=== PATIENT | male | born 1930 | race Caucasian/White ===

== ENCOUNTER 2017-01-17 17:51 | Observation (INO) | payer MEDICARE ==
[~2017-01-17] VITALS: Ht 180.3 cm; Wt 80.0 kg
[2017-01-17] VITALS (7 sets, daily range): BP systolic 136–220; BP diastolic 82–118; PULSE 90–102; RESP 20–26; TEMP 98.5; O2SAT 97–99
[~2017-01-17 17:51] MED LIST: ADVA500A INH; AMLO5TAB2 PO; ASPI-516 CHEW; METO1TAB9 PO; MULTCAP14; PRAS10TA PO; ROSU10 PO; TERA5CAP3 PO; ZOFR8TAB4 SL
[2017-01-17] MEDS ORDERED: METOPROLOL TARTRATE 5 MG/5 ML VIAL IV PUSH ONE (18:15)
[2017-01-17] MEDS ORDERED: SODIUM CHLORIDE 0.9% FLUSH 10 ML FLUSH IVF PRN (18:15)
--- NOTE | 2017-01-17 18:35 | RADRPT ---
EXAM DATE/TIME: 01/17/2017 18:22 [facility] COMPARISON: No previous studies available for comparison. INDICATIONS : Short of breath. MEDICAL HISTORY : Hypertension. Cardiovascular disease. Carcinoma; colon. SURGICAL HISTORY : CABG. Bowel resection. ENCOUNTER: Initial ACUITY: 1 day PAIN SCORE: 0/10 LOCATION: Bilateral FINDINGS: A single view of the chest demonstrates the lungs to be symmetrically aerated without evidence of mas s, infiltrate or effusion. Mild cardiomegaly. Previous median sternotomy. CONCLUSION: 1. No acute findings. Mild cardiomegaly. Yaron Horowitz MD on January 17, 2017 at 18:33 Board Certified Radiologist. This report was verified electronically.
[2017-01-17 18:38] LABS: AUTOMATED NEUTROPHIL # 6.1 TH/MM3 (1.8-7.7); BASOPHIL % 0.3 % (0.0-2.0); EOSINOPHIL # 0.1 TH/MM3 (0-0.4); EOSINOPHIL % 1.5 % (0.0-4.0); HEMATOCRIT 37.8 % (39.0-51.0); HEMO FLAGS DIFF FINAL; LYMPH % 13.3 % (9.0-44.0); LYMPHOCYTE # 1.1 TH/MM3 (1.0-4.8); MEAN CELL VOLUME 89.9 FL (80.0-100.0); MEAN CORPUSCULAR HEMOGLOBIN 30.1 PG (27.0-34.0); MEAN CORPUSCULAR HGB CONC 33.5 % (32.0-36.0); MONO % 9.3 % (0.0-8.0); NEUT % 75.6 % (16.0-70.0); PLATELET COUNT 171 TH/MM3 (150-450); WHITE BLOOD COUNT 8.1 TH/MM3 (4.0-11.0)
--- NOTE | 2017-01-17 18:39 | PD ---
HPI Chief Complaint: Pain: Acute or Chronic Time Seen by Provider: 18:09 (Aicha Rowan) Time Seen by Provider: 19:23 (Samaria Nunes MD) Travel History International Travel<30 days: No Contact w/Intl Traveler<30days: No Traveled to known affect area: No (Aicha Rowan) International Travel<30 days: No Contact w/Intl Traveler<30days: No Traveled to known affect area: No (Samaria Nunes MD) History of Present Illness HPI Patient is an 86-year-old male presenting to the emergency department for evaluation of shortness of breath. Patient states for the last several days, he hasn't been able to walk around because he gets short of breath. He has been sleeping in his recliner because he cannot lay flat. When EMS brought him to the emergency department they initially reported that he complained of chronic hip pain. Patient states that he always has had pain and takes Tylenol for this pain. He has no new pain. He has been more tired and has not taken his medications for 2 days as well. Denies any fevers, abdominal pain, chest pain, headache. 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 Amlodipine (Amlodipine Besylate) 5 Mg Tab 5 Mg PO DAILY Aspirin 81 Mg Chew 81 Mg CHEW DAILY Metoprolol Succinate ER 24 HR (Metoprolol Succinate) 50 Mg Tab 50 Mg PO BID Crestor (Rosuvastatin Calcium) 10 Mg Tab 10 Mg PO HS Terazosin (Terazosin HCl) 5 Mg Cap 5 Mg PO HS (Samaria Nunes MD) Review of Systems Except as stated in HPI: all other systems reviewed are Neg General / Constitutional: No: Fever HENT: No: Headaches Cardiovascular: Positive: Dyspnea on exertion, No: Chest Pain or Discomfort Respiratory: Positive: Shortness of Breath, Orthopnea Gastrointestinal: No: Nausea, Abdominal Pain Musculoskeletal: Positive: Pain (chronic hip) Neurologic: Positive: Weakness (Aicha Rowan) Physical Exam Narrative GENERAL: Overweight, well-developed, alert elderly gentleman. Resting comfortably in no acute distress. SKIN: Warm and dry. HEAD: Atraumatic. Normocephalic. EYES: Pupils equal and round. No scleral icterus. No injection or drainage. ENT: No nasal bleeding or discharge. Mucous membranes pink and moist. NECK: Trachea midline. No JVD. CARDIOVASCULAR: Tachycardic. 2/6 murmur RESPIRATORY: No accessory muscle use. Clear to auscultation. Breath sounds equal and diminished bilaterally. GASTROINTESTINAL: Abdomen soft, non-tender, nondistended. Hepatic and splenic margins not palpable. MUSCULOSKELETAL: Extremities without clubbing, cyanosis. No obvious deformities. Trace to 1+ edema in bilateral lower extremities. NEUROLOGICAL: Awake and alert. No obvious cranial nerve deficits. Motor grossly within normal limits. Five out of 5 muscle strength in the arms and legs. Normal speech. PSYCHIATRIC: Appropriate mood and affect; insight and judgment normal. (Aicha Rowan) Data Data Last Documented VS Vital Signs Date Time Temp Pulse Resp B/P (MAP) Pulse Ox O2 Delivery O2 Flow Rate FiO2 01/17/17 22:19 90 20 167/82 (110) 97 Nasal Cannula 2.00 01/17/17 18:11 98.5 (Samaria Nunes MD) Orders Orders Complete Blood Count With Diff (01/17/17 18:09) Comprehensive Metabolic Panel (01/17/17 18:09) B-Type Natriuretic Peptide (01/17/17 18:09) Act Partial Throm Time (Ptt) (01/17/17 18:09) Prothrombin Time / Inr (Pt) (01/17/17 18:09) Magnesium (Mg) (01/17/17 18:09) Ckmb (Isoenzyme) Profile (01/17/17 18:09) Troponin I (01/17/17 18:09) Urinalysis - C+S If Indicated (01/17/17 18:09) Iv Access Insert/Monitor (01/17/17 18:09) Electrocardiogram (01/17/17 18:09) Ecg Monitoring (01/17/17 18:09) Oximetry (01/17/17 18:09) Oxygen Administration (01/17/17 18:09) Chest, Single Ap (01/17/17 18:09) Sodium Chloride 0.9% Flush (Ns Flush) (01/17/17 18:15) Metoprolol Tartrate Inj (Lopressor Inj) (01/17/17 18:15) CKMB (01/17/17 18:22) CKMB% (01/17/17 18:22) Ct Pulmonary Angiogram (01/17/17 ) Hip, Uni(Ap&Lat) W Ap Pelvis (01/17/17 ) Morphine Inj (Morphine Inj) (01/17/17 19:30) Ondansetron Inj (Zofran Inj) (01/17/17 19:30) Ct Brain W/O Iv Contrast(Rout) (01/17/17 ) Knee, Ltd (1 Or 2vws) (01/17/17 ) Iohexol 350 Inj (Omnipaque 350 Inj) (01/17/17 21:20) Admit Order (Ed Use Only) (01/17/17 22:17) Activity Bed Rest With Brp (01/17/17 22:17) Vital Signs (Adult) Q4H (01/17/17 22:17) Cardiac Rhythm .As Directed (01/17/17 22:17) Notify Dr: Other .PRN (01/17/17 22:17) Notify . Parameters (01/17/17 22:17) Resp Oxygen Nasal Cannula (01/17/17 ) Diet Npo (01/18/17 Breakfast) Ckmb (Isoenzyme) Profile (01/17/17 22:17) Ckmb (Isoenzyme) Profile (01/18/17 01:17) Troponin I (01/17/17 22:17) Troponin I (01/18/17 01:17) Electrocardiogram (01/17/17 22:17) Electrocardiogram (01/18/17 01:17) ^ Obtain (01/17/17 22:17) Sodium Chloride 0.9% Flush (Ns Flush) (01/17/17 22:30) Sodium Chloride 0.9% Flush (Ns Flush) (01/18/17 09:00) Acetaminophen (Tylenol) (01/17/17 22:30) Acetamin-Hydrocod 325-7.5 Mg ([place] 7.5 (01/17/17 22:30) Ondansetron Inj (Zofran Inj) (01/17/17 22:30) Dice Manager / Telemetry NATHALIE.Q8H (01/17/17 22:17) CKMB (01/17/17 22:46) CKMB% (01/17/17 22:46) CKMB (01/18/17 01:40) CKMB% (01/18/17 01:40) (Samaria Nunes MD) Labs Laboratory Tests Test 01/17/17 18:22 01/17/17 19:35 White Blood Count 8.1 TH/MM3 Red Blood Count 4.20 MIL/MM3 Hemoglobin 12.7 GM/DL Hematocrit 37.8 % Mean Corpuscular Volume 89.9 FL Mean Corpuscular Hemoglobin 30.1 PG Mean Corpuscular Hemoglobin Concent 33.5 % Red Cell Distribution Width 15.0 % Platelet Count 171 TH/MM3 Mean Platelet Volume 7.3 FL Neutrophils (%) (Auto) 75.6 % Lymphocytes (%) (Auto) 13.3 % Monocytes (%) (Auto) 9.3 % Eosinophils (%) (Auto) 1.5 % Basophils (%) (Auto) 0.3 % Neutrophils # (Auto) 6.1 TH/MM3 Lymphocytes # (Auto) 1.1 TH/MM3 Monocytes # (Auto) 0.7 TH/MM3 Eosinophils # (Auto) 0.1 TH/MM3 Basophils # (Auto) 0.0 TH/MM3 CBC Comment DIFF FINAL Differential Comment Prothrombin Time 11.0 SEC Prothromb Time International Ratio 1.0 RATIO Activated Partial Thromboplast Time 29.4 SEC Blood Urea Nitrogen 29 MG/DL Creatinine 1.44 MG/DL Random Glucose 97 MG/DL Total Protein 7.2 GM/DL Albumin 3.7 GM/DL Calcium Level 8.7 MG/DL Magnesium Level 1.5 MG/DL Alkaline Phosphatase 136 U/L Aspartate Amino Transf (AST/SGOT) 29 U/L Alanine Aminotransferase (ALT/SGPT) 30 U/L Total Bilirubin 0.7 MG/DL Sodium Level 136 MEQ/L Potassium Level 4.5 MEQ/L Chloride Level 103 MEQ/L Carbon Dioxide Level 25.9 MEQ/L Anion Gap 7 MEQ/L Estimat Glomerular Filtration Rate 46 ML/MIN Total Creatine Kinase 234 U/L Creatine Kinase MB 3.4 NG/ML Troponin I LESS THAN 0.02 NG/ML B-Type Natriuretic Peptide 64 PG/ML Urine Color YELLOW Urine Turbidity CLEAR Urine pH 5.5 Urine Specific [place] 1.021 Urine Protein NEG mg/dL Urine Glucose (UA) NEG mg/dL Urine Ketones NEG mg/dL Urine Occult Blood NEG Urine Nitrite NEG Urine Bilirubin NEG Urine Urobilinogen LESS THAN 2.0 MG/DL Urine Leukocyte Esterase NEG Urine RBC 2 /hpf Urine WBC LESS THAN 1 /hpf Urine Squamous Epithelial Cells <1 /hpf Microscopic Urinalysis Comment CULT NOT INDICATED (Samaria Nunes MD) [facility] Medical Decision Making Medical Screen Exam Complete: Yes Emergency Medical Condition: Yes Interpretation(s) Vital Signs Date Time Temp Pulse Resp B/P (MAP) Pulse Ox O2 Delivery O2 Flow Rate FiO2 01/17/17 18:11 98.5 102 26 212/118 (149) 99 Nasal Cannula 2.00 01/17/17 18:11 18 26 Differential Diagnosis CHF vs ACS vs UTI vs PNA vs metabolic abnormality Narrative Course Patient is an 86-year-old male who presented for evaluation of shortness of breath, weakness. EMS reported left hip pain, patient did not complain of pain on arrival. Patient was hypertensive and tachycardic on arrival, he has not had metoprolol in 2 days. Lopressor ordered. Labs and imaging ordered and pending. Initial EKG shows sinus rhythm with frequent PVCs, new right bundle branch block. CBC with no acute findings Chemistry with elevated. Creatinine at 29/1.44, BNP 64, cardiac enzymes are negative 1 set Chest x-ray with no acute findings, mild cardiomegaly. This was read by the radiologist. CT pulmonary angiogram ordered and pending to rule out pulmonary embolism. X-ray ordered of the right hip, morphine and Zofran ordered for pain. Patient reported that when he becomes short of breath because he has a problem with his heart. Due to patient's cardiac history as well as EKG changes with no comparison, patient will be placed in the chest pain center. This was discussed with Dr. Nunes who recommended chest pain center admission. Admit orders placed. Patient is agreeable. (Aicha Rowan) Diagnosis Primary Impression: Chest pain Qualified Codes: R07.9 - Chest pain, unspecified Additional Impression: Knee pain Qualified Codes: M25.561 - Pain in right knee Admitting Information Admitting Physician Requests: Observation (Aicha Rowan) Condition: Stable Aicha Rowan Jan 17, 2017 18:39 Samaria Nunes MD Jan 18, 2017 05:54
[2017-01-17 18:52] LABS: APTT (PATIENT) 29.4 SEC (24.3-30.1)
[2017-01-17 18:54] LABS: ANION GAP 7 MEQ/L (5-15); AST (GOT) 29 U/L (15-37); BICARBONATE 25.9 MEQ/L (21.0-32.0); BLOOD UREA NITROGEN 29 MG/DL (7-18); CHLORIDE 103 MEQ/L (98-107); GLOMERULAR FILTRATION RATE 46 ML/MIN (>89); MAGNESIUM 1.5 MG/DL (1.5-2.5); POTASSIUM 4.5 MEQ/L (3.5-5.1); SODIUM (NA) 136 MEQ/L (136-145)
[2017-01-17 18:55] LABS: ALT (GPT) 30 U/L (12-78)
[2017-01-17 18:59] LABS: ALKALINE PHOSPHATASE 136 U/L (45-117); CREATINE KINASE 234 U/L (39-308); TOTAL BILIRUBIN ADULT 0.7 MG/DL (0.2-1.0)
[2017-01-17 19:11] LABS: CKMB 3.4 NG/ML (0.5-3.6)
[2017-01-17] MEDS ORDERED: MORPHINE SULFATE 2 MG/ML INJ IV PUSH ONE (19:30)
[2017-01-17] MEDS ORDERED: ONDANSETRON HCL 4 MG/2 ML VIAL IV PUSH ONE (19:30)
[2017-01-17 20:02] LABS: BLOOD, URINE NEG (NEG); COMMENT (UR) CULT NOT INDICATED; CULTURE IF INDICATED CULT NOT INDICATED; GLUCOSE,URINE NEG (NEG); KETONE, URINE NEG (NEG); NITRITE,URINE NEG (NEG); PH, URINE 5.5 (5.0-8.5); SQUAMOUS EPITHELIAL CELL URINE <1 /hpf (0-5); URINE COLOR YELLOW (YELLW/STRAW)
--- NOTE | 2017-01-17 20:43 | RADRPT ---
EXAM DATE/TIME: 01/17/2017 20:07 [facility] COMPARISON: No previous studies available for comparison. INDICATIONS : Right hip pain, no known injury. MEDICAL HISTORY : Hypertension. Cardiovascular disease. Carcinoma; colon. SURGICAL HISTORY : CABG. Bowel resection. ENCOUNTER: Subsequent ACUITY: 1 week PAIN SCORE: 10/10 LOCATION: Right hip FINDINGS: Examination of the right hip was performed with AP Pelvis. The primary and secondary trabecular kenya collette of the femoral neck is intact. Moderate osteoarthritis of the right hip. The acetabulum is gross ly intact. CONCLUSION: 1. No acute fracture or dislocation. Moderate osteoarthritis of the right hip. Yaron Horowitz MD on January 17, 2017 at 20:37 Board Certified Radiologist. This report was verified electronically.
--- NOTE | 2017-01-17 20:44 | RADRPT ---
EXAM DATE/TIME: 01/17/2017 20:07 [facility] COMPARISON: No previous studies available for comparison. INDICATIONS : Right knee pain, no known injury. MEDICAL HISTORY : Hypertension. Cardiovascular disease. Carcinoma; colon. SURGICAL HISTORY : CABG. Bowel resection. ENCOUNTER: Subsequent ACUITY: 1 week PAIN SCORE: 10/10 LOCATION: Right knee FINDINGS: There is severe osteoarthritis of the right knee with a moderate size knee joint effusion. Extensive arterial vascular calcifications noted in the popliteal artery. No acute fracture. CONCLUSION: 1. Severe osteoarthritis of the right knee with moderate size joint effusion. Yaron Horowitz MD on January 17, 2017 at 20:42 Board Certified Radiologist. This report was verified electronically.
[2017-01-17] MEDS ORDERED: IOHEXOL 350 MG/ML 10 ML VIAL (for RAD DIAG) IVCONTRAST ONE (21:20)
--- NOTE | 2017-01-17 21:32 | RADRPT ---
EXAM DATE/TIME: 01/17/2017 21:06 [facility] COMPARISON: No previous studies available for comparison. INDICATIONS : Cephalgia. RADIATION DOSE: 69.15 CTDIvol (mGy) MEDICAL HISTORY : Hypertension. Cardiovascular disease SURGICAL HISTORY : CABG ENCOUNTER: Initial ACUITY: 1 day PAIN SCALE: 5/10 LOCATION: Bilateral cranial TECHNIQUE: Multiple contiguous axial images were obtained of the head. Using automated exposure control and adj ustment of the mA and/or kV according to patient size, radiation dose was kept as low as reasonably a chievable to obtain optimal diagnostic quality images. DICOM format image data is available electro nically for review and comparison. FINDINGS: CEREBRUM: The ventricles are normal for age. No evidence of midline shift, mass lesion, hemorrhage or acute in farction. No extra-axial fluid collections are seen. POSTERIOR FOSSA: The cerebellum and brainstem are intact. The 4th ventricle is midline. The cerebellopontine angle i s unremarkable. EXTRACRANIAL: The visualized portion of the orbits is intact. SKULL: The calvaria is intact. No evidence of skull fracture. CONCLUSION: Normal examination for a patient of this age. Yaron Horowitz MD on January 17, 2017 at 21:29 Board Certified Radiologist. This report was verified electronically.
--- NOTE | 2017-01-17 21:47 | RADRPT ---
EXAM DATE/TIME: 01/17/2017 21:10 [facility] COMPARISON: No previous studies available for comparison. INDICATIONS : Chest pain. IV CONTRAST: 75 cc Omnipaque 350 (iohexol) IV RADIATION DOSE: 14.88 CTDIvol (mGy) MEDICAL HISTORY : Cardiovascular disease. Hypertension. SURGICAL HISTORY : CABG ENCOUNTER: Initial ACUITY: 1 day PAIN SCALE: 6/10 LOCATION: Bilateral chest TECHNIQUE: Volumetric scanning of the chest was performed using a pulmonary embolism protocol MIP images were re constructed. Using automated exposure control and adjustment of the mA and/or kV according to patien t size, radiation dose was kept as low as reasonably achievable to obtain optimal diagnostic quality images. DICOM format image data is available electronically for review and comparison. Follow-up recommendations for detected pulmonary nodules are based at a minimum on nodule size and pa tient risk factors according to Fleischner Society Guidelines. FINDINGS: Contrast bolus in the pulmonary arteries is suboptimal but no central filling defects are seen to sug gest pulmonary embolus. Moderate to severe coronary calcifications noted. No lung consolidation. No p leural or pericardial effusion is seen. Previous median sternotomy. CONCLUSION: 1. Suboptimal contrast bolus but no central pulmonary emboli identified. 2. Moderate to severe coronary calcifications. Yaron Horowitz MD on January 17, 2017 at 21:43 Board Certified Radiologist. This report was verified electronically.
[2017-01-17] MEDS ORDERED: ONDANSETRON HCL 4 MG/2 ML VIAL IV PUSH PRN (22:30)
[2017-01-17] MEDS ORDERED: ACETAMINOPHEN 500 MG CPLT PO PRN (22:30)
[2017-01-17] MEDS ORDERED: SODIUM CHLORIDE 0.9% FLUSH 10 ML FLUSH IV FLUSH PRN (22:30)
[2017-01-17 23:21] LABS: CREATINE KINASE 260 U/L (39-308)
[2017-01-17 23:34] LABS: CKMB 4.4 NG/ML (0.5-3.6)
[2017-01-18 00:06] VITALS: BP 141/71; PULSE 75; RESP 16; TEMP 98.1; O2SAT 99
[2017-01-18] MEDS: ACETAMINOPHEN/HYDROcodone 325 MG/7.5 MG TAB PO PRN ×2 (01:53→06:16)
[2017-01-18 02:39] LABS: CKMB 5.9 NG/ML (0.5-3.6)
[2017-01-18 03:00] VITALS: BP 131/74; PULSE 95; RESP 17; TEMP 98; O2SAT 96
[2017-01-18 07:13] VITALS: O2SAT 97
[2017-01-18] MEDS ORDERED: NITROGLYCERIN 0.4 MG SL 25 TABS/BTL SL PRN (07:45)
[2017-01-18 08:30] VITALS: PULSE 110
[2017-01-18 08:41] VITALS: BP 161/76; PULSE 91; RESP 20; TEMP 97.9; O2SAT 96
[2017-01-18] MEDS ORDERED: ASPIRIN 325 MG TAB PO SCH (09:00)
[2017-01-18] MEDS ORDERED: SODIUM CHLORIDE 0.9% FLUSH 10 ML FLUSH IV FLUSH SCH (09:00)
--- NOTE | 2017-01-18 09:12 | HHI.HP ---
HPI Primary Care Physician None Chief Complaint Right hip and right knee pain History of Present Illness 86-year-old male with history of coronary artery disease, hypertension, COPD, and hyperlipidemia presents to emergency room for further evaluation of right hip and right knee pain. Onset "at least 1 week ago." Location right hip described as sharp shooting pains to his knee. Duration constant. Precipitating factors ambulating. No known relieving factors. States he got tired of the pain and couldn't handle it anymore therefore called EMS. When questioned about chest pain adamantly denies chest pain. When questioned about dyspnea on exertion and requiring sleeping in a recliner per ER record, he reports "that is what my told them." Reports sleeping in a recliner for along time. Denies shortness of breath on exertional, stating right hip pain becomes worse with walking and may become labored due to pain. Endorses he does not have a PCP he follows with but would be able to see his ie's PCP for follow up. Denies any recent fall or known injury. Mildly angry and frustrated he is admitted to chest pain center, stating "I came to ER for my hip and knee pain. Review of Systems General: No fatigue,weakness, fever, chills, or recent illness. Has been in his general state of health other than as stated above. No known injury, no trauma, or recent fall. CV: History of CABG x3 (2007). Follows with Dr. José. No known CHF. Unsure if he ever had an echocardiogram done, unsure of EF%. No CP, pressure, tightness , palpitations, or dizziness. RESP: No SOB, cough, wheeze, or recent URI. History of COPD reports COPD stable on current Advair inhaler. GI: No nausea, vomiting, or bowel changes. No change in appetite. : History of BPH. No dysuria. EXT: No worsen bilateral dependent edema, no paraesthesias MS: No discomfort or change in ROM. Ambulates with a walker. No recent falls. NEURO: No LOC, motor/sensory deficits PSYCH: No anxiety or depression SKIN: No rashes, no concerning lesions Past Family Social History Allergies: Coded Allergies: No Known Allergies (Verified , 01/20/13) Past Medical History CAD, hypertension, hyperlipidemia, COPD, BPH Past Surgical History CABG 3 and aortic valve replacement (2007), bowel resection Reported Medications Reported Effient (Prasugrel) 10 Mg Tab 10 Mg PO DAILY Advair Diskus Inh (Fluticasone-Salmeterol Inh) 500-50 Mcg/Blist Aer 1 Puff INH BID Rinse mouth after use. Amlodipine (Amlodipine Besylate) 5 Mg Tab 5 Mg PO DAILY Aspirin 81 Mg Chew 81 Mg CHEW DAILY Metoprolol Succinate ER 24 HR (Metoprolol Succinate) 50 Mg Tab 50 Mg PO BID Crestor (Rosuvastatin Calcium) 10 Mg Tab 10 Mg PO HS Terazosin (Terazosin HCl) 5 Mg Cap 5 Mg PO HS Active Ordered Medications Current Medications Medications (Trade) Dose Ordered Sig/Rios Route Start Time Stop Time Status Last Admin (NS Flush) 2 ml UNSCH PRN IV FLUSH 01/17/17 22:30 (NS Flush) 2 ml BID IV FLUSH 01/18/17 09:00 01/18/17 08:33 (Tylenol) 500 mg Q4H PRN PO 01/17/17 22:30 ([place] 7.5-325 Mg) 1 tab Q4H PRN PO 01/17/17 22:30 01/18/17 06:16 (Zofran Inj) 4 mg Q6H PRN IV PUSH 01/17/17 22:30 (Nitrostat Sl) 0.4 mg Q5M PRN SL 01/18/17 07:45 (Aspirin) 325 mg DAILY PO 01/18/17 09:00 01/18/17 08:33 Social History Known coronary artery disease, hypertension, and hyper lipidemia. No known diabetes. Quit smoking at age 73. Denies any alcohol. . Ambulates with a walker. Past cardiac testing No recent stress testing. Follows with Dr. José. 01/20/2013 cardiac catheterization (Dr. José)-conclusions 1. Unstable angina, [place] cardiovascular Society class IV angina, culprit 95% distal left anterior descending stenosis as detailed above. 2. Otherwise, severe three-vessel coronary artery disease and right dominant system as detailed above. 3. 3 of 3 grafts patent. 4. Ejection fraction of left ventricular end diastolic pressure was not accessed due to history of aortic valve. 5. Successful PTCA of distal left anterior descending from 95% to 0% with CARY 3 flow. 6. Recommend Effient 60 mg now then 10 mg daily. Aspirin 81 mg a day indefinitely. The patient will continue on his home meds of Lopressor milligrams twice a day, pravastatin 20 mg. As an outpatient, I will change the patient to Crestor for more aggressive lipid management. Physical Exam Vital Signs Vital Signs Date Time Temp Pulse Resp B/P (MAP) Pulse Ox O2 Delivery O2 Flow Rate FiO2 01/18/17 08:41 97.9 91 20 161/76 (104) 96 01/18/17 07:13 97 Nasal Cannula 2.00 01/18/17 03:00 98.0 95 17 131/74 (93) 96 01/18/17 00:06 98.1 75 16 141/71 (94) 99 01/17/17 23:05 01/17/17 22:25 97 21 01/17/17 22:19 90 20 167/82 (110) 97 Nasal Cannula 2.00 01/17/17 20:39 100 22 136/82 (100) 97 Nasal Cannula 2.00 01/17/17 20:22 99 20 188/107 (134) 98 2.00 01/17/17 19:45 186/114 (138) 01/17/17 19:21 96 22 220/98 (138) 99 Nasal Cannula 2.00 01/17/17 19:21 96 22 220/98 (138) 99 Nasal Cannula 2.00 01/17/17 19:21 99 Nasal Cannula 2.00 01/17/17 18:11 98.5 102 26 212/118 (149) 99 Nasal Cannula 2.00 01/17/17 18:11 18 26 Physical Exam GENERAL: Alert WN, WD, NAD, pleasant, elderly male HEAD: NC, AT CV: RRR, without murmur, rub, gallop, no JVD, S1-S2 no S3-S4. RESP: Clear lungs throughout bilateral, no crackles, wheeze, rhonchi, symmetrical chest rise, nonlabored, able to speak in full sentences ABD: Soft, NT, ND, no masses, positive bowel tones EXT: Pulses +24, +2 pitting lower dependent edema MS: Normal tone 4 extremities, no obvious deformities, full range of motion, nontender right hip and right knee pain with passive rom or palpation. NEURO: CN II through CN XII grossly intact, motor strength 5/5 PSYCH: A+O 3, pleasant affect, appropriate speech, mood, insight and judgment SKIN: Normal turgor, normal texture, bilateral lower extremities varicosities, decreased lower extremities hair distribution Laboratory Laboratory Tests Test 01/17/17 18:22 01/17/17 19:35 01/17/17 22:46 01/18/17 01:40 White Blood Count 8.1 Red Blood Count 4.20 Hemoglobin 12.7 Hematocrit 37.8 Mean Corpuscular Volume 89.9 Mean Corpuscular Hemoglobin 30.1 Mean Corpuscular Hemoglobin Concent 33.5 Red Cell Distribution Width 15.0 Platelet Count 171 Mean Platelet Volume 7.3 Neutrophils (%) (Auto) 75.6 Lymphocytes (%) (Auto) 13.3 Monocytes (%) (Auto) 9.3 Eosinophils (%) (Auto) 1.5 Basophils (%) (Auto) 0.3 Neutrophils # (Auto) 6.1 Lymphocytes # (Auto) 1.1 Monocytes # (Auto) 0.7 Eosinophils # (Auto) 0.1 Basophils # (Auto) 0.0 CBC Comment DIFF FINAL Differential Comment Prothrombin Time 11.0 Prothromb Time International Ratio 1.0 Activated Partial Thromboplast Time 29.4 Blood Urea Nitrogen 29 Creatinine 1.44 Random Glucose 97 Total Protein 7.2 Albumin 3.7 Calcium Level 8.7 Magnesium Level 1.5 Alkaline Phosphatase 136 Aspartate Amino Transf (AST/SGOT) 29 Alanine Aminotransferase (ALT/SGPT) 30 Total Bilirubin 0.7 Sodium Level 136 Potassium Level 4.5 Chloride Level 103 Carbon Dioxide Level 25.9 Anion Gap 7 Estimat Glomerular Filtration Rate 46 Total Creatine Kinase 234 260 343 Creatine Kinase MB 3.4 4.4 5.9 Troponin I LESS THAN 0.02 0.02 0.02 B-Type Natriuretic Peptide 64 Urine Color YELLOW Urine Turbidity CLEAR Urine pH 5.5 Urine Specific [place] 1.021 Urine Protein NEG Urine Glucose (UA) NEG Urine Ketones NEG Urine Occult Blood NEG Urine Nitrite NEG Urine Bilirubin NEG Urine Urobilinogen LESS THAN 2.0 Urine Leukocyte Esterase NEG Urine RBC 2 Urine WBC LESS THAN 1 Urine Squamous Epithelial Cells <1 Microscopic Urinalysis Comment CULT NOT INDICATED Creatine Kinase MB % 1.7 Result Diagram: 01/17/17182101/17/171821 Imaging Last Impressions Chest X-Ray 01/17/171808 Signed Impressions: Service Date/Time: December 18:22 - CONCLUSION: 1. No acute findings. Mild cardiomegaly. Yaron Horowitz MD Knee X-Ray 01/17/17 Signed Impressions: Service Date/Time: December 20:07 - CONCLUSION: 1. Severe osteoarthritis of the right knee with moderate size joint effusion. Yaron Horowitz MD Hip and Pelvis X-Ray 01/17/17 Signed Impressions: Service Date/Time: December 20:07 - CONCLUSION: 1. No acute fracture or dislocation. Moderate osteoarthritis of the right hip. Yaron Horowitz MD Head CT 01/17/17 Signed Impressions: Service Date/Time: December 21:06 - CONCLUSION: Normal examination for a patient of this age. Yaron Horowitz MD CT Angiography 01/17/17 Signed Impressions: Service Date/Time: December 21:10 - CONCLUSION: 1. Suboptimal contrast bolus but no central pulmonary emboli identified. 2. Moderate to severe coronary calcifications. Yaron Horowitz MD Course EKG Right bundle branch block with frequent PVCs Caprini VTE Risk Assessment Caprini VTE Risk Assessment: Mod/High Risk (score >= 2) Caprini Risk Assessment Model Point Value = 1 Point Value = 2 Point Value = 3 Point Value = 5 Age 41-60 Minor surgery BMI > 25 kg/m2 Swollen legs Varicose veins or History of unexplained or recurrent spontaneous Oral contraceptives or hormone replacement Sepsis (< 1 month) Serious lung disease, including pneumonia (< 1 month) Abnormal pulmonary function Acute myocardial infarction Congestive heart failure (< 1 month) History of inflammatory bowel disease Medical patient at bed rest Age 61-74 Arthroscopic surgery Major open surgery (> 45 min) Laparoscopic surgery (> 45 min) Malignancy Confined to bed (> 72 hours) Immobilizing plaster cast Central venous access Age >= 75 History of VTE Family history of VTE Factor V Leiden Prothrombin [id number] Lupus anticoagulant Anticardiolipin antibodies Elevated serum homocysteine Heparin-induced thrombocytopenia Other congenital or acquired thrombophilia Stroke (< 1 month) Elective arthroplasty Hip, pelvis, or leg fracture Acute spinal cord injury (< 1 month) Prophylaxis Regimen Total Risk Factor Score Risk Level Prophylaxis Regimen 0-1 Low Early ambulation 2 Moderate Order ONE of the following: *Sequential Compression Device (SCD) *Heparin 5000 units SQ BID 3-4 Higher Order ONE of the following medications: *Heparin 5000 units SQ TID *Enoxaparin/Lovenox 40 mg SQ daily (WT < 150 kg, CrCl > 30 mL/min) *Enoxaparin/Lovenox 30 mg SQ daily (WT < 150 kg, CrCl > 10-29 mL/min) *Enoxaparin/Lovenox 30 mg SQ BID (WT < 150 kg, CrCl > 30 mL/min) AND/OR *Sequential Compression Device (SCD) 5 or more Highest Order ONE of the following medications: *Heparin 5000 units SQ TID (Preferred with Epidurals) *Enoxaparin/Lovenox 40 mg SQ daily (WT < 150 kg, CrCl > 30 mL/min) *Enoxaparin/Lovenox 30 mg SQ daily (WT < 150 kg, CrCl > 10-29 mL/min) *Enoxaparin/Lovenox 30 mg SQ BID (WT < 150 kg, CrCl > 30 mL/min) AND *Sequential Compression Device (SCD) Assessment and Plan Assessment and Plan #1 Right hip pain-no acute findings such as fracture or dislocation on hip fracture x-ray. Suggesting moderate osteoarthritis of right hip. Conservative measures, establish with a PCP. #2 Right knee pain-no acute physical findings, knee x-rays suggest severe osteoarthritis with moderate size joint effusion, recommended follow-up with a PCP. #3 History of CAD-continue Effient, amlodipine, aspirin, metoprolol, and Crestor. #4 COPD-no acute findings, stable, continue Advair Admitted to chest pain center. Ruled out with 3 sets of EKGs, cardiac enzymes, monitor overnight. Seen and evaluated by Dr. Tanmay Kwong. No further cardiac testing is patient admitted he never had any chest pain or discomfort. Lasix 40 mg IV 1 dose prior to discharge due to bilateral lower extremity edema. Discharge home later this morning. Patient agreeable to plan a care as he is anxious to return home. Strongly encouraged and stressed the importance of establishing with a PCP. Keep previously scheduled appointments with breast worker. Teena Gonzalez Jan 18, 2017 09:12
--- NOTE | 2017-01-18 10:05 | PD.CARD.PN ---
Subjective Subjective Remarks Discussed with BRAND ACTIVATION MANAGER and then evaluated and examined. Her H&P is appropriate and i am in agreement. He denies any increase in SOB, PND, ORTHOPNEA and stated that he came to the ED because of hip and knee pain. His CV status remains stable and unchanged from his baseline. He sleeps in a recliner at times simply because he can't get to sleep not because of breathing issues. Leg swelling is chronic and unchanged. He is followed by Dr. José on a regular basis. Objective Medications Current Medications Medications (Trade) Dose Ordered Sig/Rios Route Start Time Stop Time Status Last Admin (NS Flush) 2 ml UNSCH PRN IV FLUSH 01/17/17 22:30 (NS Flush) 2 ml BID IV FLUSH 01/18/17 09:00 01/18/17 08:33 (Tylenol) 500 mg Q4H PRN PO 01/17/17 22:30 ([place] 7.5-325 Mg) 1 tab Q4H PRN PO 01/17/17 22:30 01/18/17 06:16 (Zofran Inj) 4 mg Q6H PRN IV PUSH 01/17/17 22:30 (Nitrostat Sl) 0.4 mg Q5M PRN SL 01/18/17 07:45 (Aspirin) 325 mg DAILY PO 01/18/17 09:00 01/18/17 08:33 Vital Signs / I&O Vital Signs Date Time Temp Pulse Resp B/P (MAP) Pulse Ox O2 Delivery O2 Flow Rate FiO2 01/18/17 08:41 97.9 91 20 161/76 (104) 96 01/18/17 08:30 110 01/18/17 07:13 97 Nasal Cannula 2.00 01/18/17 03:00 98.0 95 17 131/74 (93) 96 01/18/17 00:06 98.1 75 16 141/71 (94) 99 01/17/17 23:05 01/17/17 22:25 97 21 01/17/17 22:19 90 20 167/82 (110) 97 Nasal Cannula 2.00 01/17/17 20:39 100 22 136/82 (100) 97 Nasal Cannula 2.00 01/17/17 20:22 99 20 188/107 (134) 98 2.00 01/17/17 19:45 186/114 (138) 11/23/17 19:21 96 22 220/98 (138) 99 Nasal Cannula 2.00 01/17/17 19:21 96 22 220/98 (138) 99 Nasal Cannula 2.00 01/17/17 19:21 99 Nasal Cannula 2.00 01/17/17 18:11 98.5 102 26 212/118 (149) 99 Nasal Cannula 2.00 01/17/17 18:11 18 26 I/O 01/17/17 01/17/17 01/17/17 01/18/17 01/18/17 01/18/17 07:00 15:00 23:00 07:00 15:00 23:00 Output Total 150 ml Balance -150 ml Output Urine Total 150 ml # Voids 1 Physical Exam Sitting at bedside No JVD Chest clear with decreased BS but no RWR CV irregular with 1--2/6 Sm, no G or R Ext 2+ pitting 1 cm abrasions below R knee and ecchymosis on knee (possible cause of pain?) Laboratory Laboratory Tests Test 01/17/17 18:22 01/17/17 19:35 01/17/17 22:46 01/18/17 01:40 White Blood Count 8.1 TH/MM3 Red Blood Count 4.20 MIL/MM3 Hemoglobin 12.7 GM/DL Hematocrit 37.8 % Mean Corpuscular Volume 89.9 FL Mean Corpuscular Hemoglobin 30.1 PG Mean Corpuscular Hemoglobin Concent 33.5 % Red Cell Distribution Width 15.0 % Platelet Count 171 TH/MM3 Mean Platelet Volume 7.3 FL Neutrophils (%) (Auto) 75.6 % Lymphocytes (%) (Auto) 13.3 % Monocytes (%) (Auto) 9.3 % Eosinophils (%) (Auto) 1.5 % Basophils (%) (Auto) 0.3 % Neutrophils # (Auto) 6.1 TH/MM3 Lymphocytes # (Auto) 1.1 TH/MM3 Monocytes # (Auto) 0.7 TH/MM3 Eosinophils # (Auto) 0.1 TH/MM3 Basophils # (Auto) 0.0 TH/MM3 CBC Comment DIFF FINAL Differential Comment Prothrombin Time 11.0 SEC Prothromb Time International Ratio 1.0 RATIO Activated Partial Thromboplast Time 29.4 SEC Blood Urea Nitrogen 29 MG/DL Creatinine 1.44 MG/DL Random Glucose 97 MG/DL Total Protein 7.2 GM/DL Albumin 3.7 GM/DL Calcium Level 8.7 MG/DL Magnesium Level 1.5 MG/DL Alkaline Phosphatase 136 U/L Aspartate Amino Transf (AST/SGOT) 29 U/L Alanine Aminotransferase (ALT/SGPT) 30 U/L Total Bilirubin 0.7 MG/DL Sodium Level 136 MEQ/L Potassium Level 4.5 MEQ/L Chloride Level 103 MEQ/L Carbon Dioxide Level 25.9 MEQ/L Anion Gap 7 MEQ/L Estimat Glomerular Filtration Rate 46 ML/MIN Total Creatine Kinase 234 U/L 260 U/L 343 U/L Creatine Kinase MB 3.4 NG/ML 4.4 NG/ML 5.9 NG/ML Troponin I LESS THAN 0.02 NG/ML 0.02 NG/ML 0.02 NG/ML B-Type Natriuretic Peptide 64 PG/ML Urine Color YELLOW Urine Turbidity CLEAR Urine pH 5.5 Urine Specific [place] 1.021 Urine Protein NEG mg/dL Urine Glucose (UA) NEG mg/dL Urine Ketones NEG mg/dL Urine Occult Blood NEG Urine Nitrite NEG Urine Bilirubin NEG Urine Urobilinogen LESS THAN 2.0 MG/DL Urine Leukocyte Esterase NEG Urine RBC 2 /hpf Urine WBC LESS THAN 1 /hpf Urine Squamous Epithelial Cells <1 /hpf Microscopic Urinalysis Comment CULT NOT INDICATED Creatine Kinase MB % 1.7 % Imaging Last 24 hours Impressions Chest X-Ray 01/17/17 1809 Signed Impressions: Service Date/Time: December 18:22 - CONCLUSION: 1. No acute findings. Mild cardiomegaly. Yaron Horowitz MD Assessment and Plan Assessment and Plan Will review current treatment. Add brief diuresis. As he has no CP and is followed by compressor operator portable further evaluation now is not appropriate. Will discharge once stable to FU as OP with Dr. José. Code Status Full Discussed Condition With Patient Tanmay Kwong MD Jan 18, 2017 10:05
[2017-01-18] MEDS ORDERED: amLODIPine BESYLATE 5 MG TAB PO SCH (10:15)
[2017-01-18] MEDS ORDERED: PRASUGREL 10 MG TAB PO SCH (10:15)
[2017-01-18] MEDS ORDERED: FUROSEMIDE 40 MG/4 ML VIAL IV PUSH ONE (10:15)
[2017-01-18] MEDS ORDERED: ASPIRIN 81 MG CHEW TAB CHEW SCH (10:15)
[2017-01-18] MEDS ORDERED: METOPROLOL SUCCINATE 50 MG EXTENDED RELEASE TAB PO SCH (10:15)
[2017-01-18] MEDS ORDERED: BUDESONIDE-FORMOTEROL 160/4.5 MCG INHALER INH SCH (10:30)
[2017-01-18 11:13] VITALS: BP 129/70; PULSE 113; RESP 18; TEMP 95.1; O2SAT 98
--- NOTE | 2017-01-18 11:17 | HHI.DCPOC ---
Discharge Care Plan Diagnosis: (1) Hx of coronary artery disease (2) Right hip pain Goals to Promote Your Health * To prevent worsening of your condition and complications * To maintain your health at the optimal level Directions to Meet Your Goals Take your medications as prescribed Follow your dietary instruction Follow activity as directed Keep your appointments as scheduled Take your immunizations and boosters as scheduled If your symptoms worsen call your PCP, if no PCP go to Urgent Care Center or Emergency Room Smoking is Dangerous to Your Health. Avoid second hand smoke Call the 24-hour hour crisis hotline for domestic abuse at Teena Gonzalez Jan 18, 2017 11:17
--- NOTE | 2017-01-18 13:06 | EKG ---
Date Performed: 01/17/2017 Time Performed: 22:49:41 PTAGE: 86 years EKG: SINUS TACHYCARDIA WITH FREQUENT VENTRICULAR PREMATURE COMPLEXES IN A BIGEMINAL PATTERN RIGH T BUNDLE BRANCH BLOCK LEFT ANTERIOR FASCICULAR BLOCK ABNORMAL ECG Compared to PREVIOUS TRACING , ventricular is more frequent. PREVIOUS TRACIN01/17/2017 18.12 DOCTOR: Tanmay Kwong Interpretating Date/Time 01/18/2017 13:04:59
--- NOTE | 2017-01-18 13:06 | EKG ---
Date Performed: 01/18/2017 Time Performed: 01:10:12 PTAGE: 86 years EKG: SINUS TACHYCARDIA WITH FREQUENT VENTRICULAR PREMATURE COMPLEXES RIGHT BUNDLE BRANCH BLOCK L EFT ANTERIOR FASCICULAR BLOCK VENTRICULAR COUPLET IS NOTED ABNORMAL ECG Since PREVIOUS TRACING , no significant change noted PREVIOUS TRACIN01/17/2017 18.12 DOCTOR: Tanmay Kwong Interpretating Date/Time 01/18/2017 13:05:29
--- NOTE | 2017-01-18 13:06 | EKG ---
Date Performed: 01/17/2017 Time Performed: 18:12:37 PTAGE: 86 years EKG: Sinus rhythm WITH FREQUENT VENTRICULAR PREMATURE COMPLEXES RIGHT BUNDLE BRANCH BLOCK LEFT ANTERIOR FASCICULAR BLO CK ABNORMAL ECG Compared to PREVIOUS TRACING , the rate has increased. Right bundle branch block pattern is new. Nons pecific ST-T wave changes secondary to block or ischemia are noted. Clinical correlation is recommend ed. PREVIOUS TRACING 06/28/2011 DOCTOR: Tanmay Kwong Interpretating Date/Time 01/18/2017 13:04:05
== END 2017-01-18 11:44 | disposition home or self-care (01) ==
LOC: NEPC 17:51 → NEDA 22:20 → NEPGCP 23:19
PROVIDERS: ADMIT Internal Medicine Cardiovascular Disease; ATTEND Internal Medicine Cardiovascular Disease
DX: M25.552 Pain in left hip (principal); M25.561 Pain in right knee; G89.29 Other chronic pain; M16.11 Unilateral primary osteoarthritis, right hip; M17.11 Unilateral primary osteoarthritis, right knee; I25.10 Atherosclerotic heart disease of native coronary artery without angina pectoris; I10 Essential (primary) hypertension; J44.9 Chronic obstructive pulmonary disease, unspecified; E78.5 Hyperlipidemia, unspecified; I45.10 Unspecified right bundle-branch block; Z79.82 Long term (current) use of aspirin; Z79.899 Other long term (current) drug therapy; Z95.1 Presence of aortocoronary bypass graft; Z95.2 Presence of prosthetic heart valve; Z90.49 Acquired absence of other specified parts of digestive tract
CPT/HCPCS: 70450; 71010; 71275; 73502; 73560; 80053; 81001; 82550; 82552; 83735; 83880; 84484; 85025; 85610; 85730; 93005; 96374; 96375; 99285; G0378; J1940; J2270; J2405; Q9967

== ENCOUNTER 2017-01-23 09:51 | Inpatient (IN) | payer MEDICARE ==
[~2017-01-23] VITALS: Ht 188 cm; Wt 98.0 kg
[~2017-01-23 09:51] MED LIST changes: -MULTCAP14
[2017-01-23 10:07] VITALS: BP 163/87; PULSE 84; RESP 16; TEMP 97.7; O2SAT 98
[2017-01-23 11:00] VITALS: BP 209/90; PULSE 99; RESP 20; TEMP 98.1; O2SAT 97
--- NOTE | 2017-01-23 11:02 | PD ---
HPI . 86 yo m with a cc of weakness. He was not able to provide much information throughout the exam, patient was quite somnolent. He responded when sternal rubbed. He denied CP/SOB. No N/V/D. Chief Complaint: General Weakness Time Seen by Provider: 10:28 Travel History International Travel<30 days: No Contact w/Intl Traveler<30days: No Traveled to known affect area: No PFSH Past Medical History Arthritis: Yes Asthma: No Blood Disorders: No Heart Rhythm Problems: No Cancer: Yes ([facility] CANCER 1974) Cardiac Catheterization: No Cardiovascular Problems: Yes High Cholesterol: Yes Chemotherapy: No Chest Pain: No Congestive Heart Failure: Yes COPD: No Coronary Artery Disease: Yes Diabetes: No Endocrine: No Gastrointestinal Disorders: No Genitourinary: No Hypertension: Yes Immune Disorder: No Musculoskeletal: Yes (BILATERAL KNEE PAIN) Neurologic: No Psychiatric: No Reproductive: No Respiratory: No Immunizations Current: No Radiation Therapy: No Sleep Apnea: No Thyroid Disease: No Past Surgical History Abdominal Surgery: Yes (bowel resection) Cardiac Surgery: Yes (aortic valve replacement 2007/ cabg x3) Coronary Artery Bypass Graft: Yes (CABG X 3) Pacemaker: No Other Surgery: Yes (CABG X3 , VALVE REPLACEMENT) Social History Alcohol Use: No Tobacco Use: No (quit 1975) Substance Use: No Allergies-Medications (Allergen,Severity, Reaction): Coded Allergies: No Known Allergies (Verified , 01/20/13) Reported Meds & Prescriptions Reported Meds & Active Scripts Active Zofran Odt (Ondansetron Odt) 8 Mg Tab 8 Mg SL Q12H PRN Reported Effient (Prasugrel) 10 Mg Tab 10 Mg PO DAILY Advair Diskus Inh (Fluticasone-Salmeterol Inh) 500-50 Mcg/Blist Aer 1 Puff INH BID Rinse mouth after use. Amlodipine (Amlodipine Besylate) 5 Mg Tab 5 Mg PO DAILY Aspirin 81 Mg Chew 81 Mg CHEW DAILY Metoprolol Succinate ER 24 HR (Metoprolol Succinate) 50 Mg Tab 50 Mg PO BID Crestor (Rosuvastatin Calcium) 10 Mg Tab 10 Mg PO HS Terazosin (Terazosin HCl) 5 Mg Cap 5 Mg PO HS Review of Systems Except as stated in HPI: all other systems reviewed are Neg Physical Exam Narrative GENERAL: patient is laying in bed, somnolently. SKIN: Warm and dry. HEAD: Atraumatic. Normocephalic. EYES: Pupils equal and round. No scleral icterus. No injection or drainage. ENT: No nasal bleeding or discharge. Mucous membranes pink and moist. NECK: Trachea midline. No JVD. CARDIOVASCULAR: tachycardia with occasional premature contractions. RESPIRATORY: No accessory muscle use. Clear to auscultation. Breath sounds equal bilaterally. GASTROINTESTINAL: Abdomen soft, non-tender, nondistended. Hepatic and splenic margins not palpable. MUSCULOSKELETAL: Extremities without clubbing, cyanosis, or edema. No obvious deformities. NEUROLOGICAL: Awake and alert. No obvious cranial nerve deficits. Motor grossly within normal limits. Five out of 5 muscle strength in the arms and legs. Normal speech. PSYCHIATRIC: Appropriate mood and affect; insight and judgment normal. Data Data Last Documented VS Vital Signs Date Time Temp Pulse Resp B/P (MAP) Pulse Ox O2 Delivery O2 Flow Rate FiO2 01/23/17 10:08 78 16 98 Room Air 01/23/17 10:07 97.7 163/87 (112) Orders Orders Complete Blood Count With Diff (01/23/17 10:29) Comprehensive Metabolic Panel (01/23/17 10:29) Creatine Kinase (Cpk) (01/23/17 10:29) Troponin I (01/23/17 10:29) Urinalysis - C+S If Indicated (01/23/17 10:29) Thyroid Stimulating Hormone (01/23/17 10:29) Chest, Single Ap (01/23/17 10:29) Iv Access Insert/Monitor (01/23/17 10:29) Ecg Monitoring (01/23/17 10:29) Oximetry (01/23/17 10:29) MDM Medical Decision Making Differential Diagnosis weakness, possible sepsis, SIRS (tachypnea and tachycardia), Narrative Course CBC, BMP, U/A, Lactic acid, CXR, cultures Brandon Viveros MD Jan 23, 2017 11:02
[2017-01-23 11:13] LABS: AUTOMATED NEUTROPHIL # 5.4 TH/MM3 (1.8-7.7); BASOPHIL % 0.4 % (0.0-2.0); EOSINOPHIL # 0.1 TH/MM3 (0-0.4); EOSINOPHIL % 1.4 % (0.0-4.0); HEMATOCRIT 36.1 % (39.0-51.0); HEMO FLAGS DIFF FINAL; LYMPH % 14.8 % (9.0-44.0); LYMPHOCYTE # 1.1 TH/MM3 (1.0-4.8); MEAN CELL VOLUME 90.6 FL (80.0-100.0); MEAN CORPUSCULAR HEMOGLOBIN 30.4 PG (27.0-34.0); MEAN CORPUSCULAR HGB CONC 33.5 % (32.0-36.0); MONO % 11.4 % (0.0-8.0); PLATELET COUNT 180 TH/MM3 (150-450); RED BLOOD COUNT 3.98 MIL/MM3 (4.50-5.90); RED CELL DISTRIBUTION WIDTH 15.2 % (11.6-17.2); WHITE BLOOD COUNT 7.5 TH/MM3 (4.0-11.0)
[2017-01-23 11:16] LABS: BACTERIA, URINE RARE /hpf; BLOOD, URINE NEG (NEG); COMMENT (UR) CULT NOT INDICATED; CULTURE IF INDICATED CULT NOT INDICATED; GLUCOSE,URINE NEG (NEG); KETONE, URINE NEG (NEG); NITRITE,URINE NEG (NEG); URINE COLOR YELLOW (YELLW/STRAW)
[2017-01-23 11:21] VITALS: BP 140/72; PULSE 97; RESP 20; O2SAT 97
--- NOTE | 2017-01-23 11:22 | RADRPT ---
EXAM DATE/TIME: 01/23/2017 10:47 [facility] COMPARISON: CHEST SINGLE AP, January 17, 2017, 18:22. INDICATIONS : Short of breath with wheezing. MEDICAL HISTORY : Myocardial infarction. SURGICAL HISTORY : CABG. ENCOUNTER: Initial ACUITY: 1 day PAIN SCORE: 0/10 LOCATION: Bilateral chest FINDINGS: A single view of the chest demonstrates the lungs to be symmetrically aerated without evidence of mas s, infiltrate or effusion. Sternal wires and previous bypass are noted. There is mild compensated c ardiomegaly. There is no infiltrate or failure. The portion of the bony skeleton visualized is unrem arkable. CONCLUSION: Previous bypass, compensated cardiomegaly. Mal Michael MD FACR on January 23, 2017 at 11:19 Board Certified Radiologist. This report was verified electronically.
[2017-01-23 11:30] LABS: ALT (GPT) 77 U/L (12-78)
[2017-01-23 11:33] LABS: ANION GAP 9 MEQ/L (5-15); AST (GOT) 82 U/L (15-37); BICARBONATE 21.5 MEQ/L (21.0-32.0); BLOOD UREA NITROGEN 65 MG/DL (7-18); CHLORIDE 110 MEQ/L (98-107); GLOMERULAR FILTRATION RATE 49 ML/MIN (>89); POTASSIUM 4.1 MEQ/L (3.5-5.1); SODIUM (NA) 140 MEQ/L (136-145)
[2017-01-23 11:40] LABS: ALKALINE PHOSPHATASE 102 U/L (45-117); CREATINE KINASE 352 U/L (39-308); TOTAL BILIRUBIN ADULT 1.1 MG/DL (0.2-1.0)
[2017-01-23 11:52] LABS: CKMB 5.8 NG/ML (0.5-3.6)
--- NOTE | 2017-01-23 12:45 | EKG ---
Date Performed: 01/23/2017 Time Performed: 10:29:16 PTAGE: 86 years EKG: Baseline artifact present Sinus rhythm RIGHT BUNDLE BRANCH BLOCK LEFT ANTERIOR FASCICULAR BLOCK ABNORMAL ECG INTERPRETATION BASED ON A DEFA ULT AGE OF 40 YEARS Unfortunately, both EKGs have marked artifact and I cannot accurately compare rhy thm. DOCTOR: Jaquan Daley Interpretating Date/Time 01/23/2017 12:44:51
[2017-01-23] MEDS ORDERED: ACETAMINOPHEN 325 MG TAB PO PRN ×2 (13:15)
[2017-01-23] MEDS ORDERED: SENNOSIDES 8.6 MG TAB PO PRN (13:15)
[2017-01-23] MEDS ORDERED: SODIUM CHLORIDE 0.9% FLUSH 10 ML FLUSH IV FLUSH PRN (13:15)
[2017-01-23] MEDS ORDERED: cloNIDine HCL 0.1 MG TAB PO PRN (13:15)
[2017-01-23] MEDS ORDERED: MAGNESIUM HYDROXIDE SUSP 30 ML CUP PO PRN (13:15)
[2017-01-23] MEDS ORDERED: NALOXONE HCL 0.4 MG/ML AMP IV PUSH PRN (13:15)
[2017-01-23] MEDS ORDERED: PROCHLORPERAZINE 25 MG SUPP RECTAL PRN (13:15)
[2017-01-23] MEDS ORDERED: BISACODYL 10 MG SUPP RECTAL PRN (13:15)
[2017-01-23] MEDS ORDERED: ONDANSETRON HCL 4 MG/2 ML VIAL IVP PRN (13:15)
[2017-01-23] MEDS ORDERED: oxyCODONE/ACETAMINOPHEN 10 MG/325 MG TAB PO PRN (13:15)
[2017-01-23] MEDS ORDERED: MORPHINE SULFATE 4 MG/ML INJ IV PUSH PRN ×2 (13:15)
[2017-01-23] MEDS ORDERED: LACTULOSE SYRUP 20 GM/30 ML CUP PO PRN (13:15)
--- NOTE | 2017-01-23 13:59 | HHI.HP ---
[facility] Unknown Admission Diagnosis severe dehydration, weakness, lethargic, sacral/buttock decubitus Diagnoses: (1) Hx of coronary artery disease Diagnosis: Principal (2) Renal insufficiency Diagnosis: Principal (3) Generalized weakness Diagnosis: Principal (4) Decubitus ulcers Diagnosis: Principal (5) Hypertension Diagnosis: Secondary (6) Coronary artery disease Diagnosis: Secondary (7) Hyperlipidemia Diagnosis: Secondary Chief Complaint: Generalized weakness Travel History International Travel<30 Days: No Contact w/Intl Traveler <30 Da: No Traveled to Known Affected Are: No History of Present Illness Patient is a 86-year-old male with chief complaint of weakness. 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 Amlodipine (Amlodipine Besylate) 5 Mg Tab 5 Mg PO DAILY Aspirin 81 Mg Chew 81 Mg CHEW DAILY Metoprolol Succinate ER 24 HR (Metoprolol Succinate) 50 Mg Tab 50 Mg PO BID Crestor (Rosuvastatin Calcium) 10 Mg Tab 10 Mg PO HS Terazosin (Terazosin HCl) 5 Mg Cap 5 Mg PO HS Allergies: Coded Allergies: No Known Allergies (Verified , 01/20/13) Active Ordered Medications Current Medications Clonidine (Catapres) 0.1 mg Q4H PRN PO SBP>160, DBP>90; Start 01/23/17 at 13: 15; Status UNV Sodium Chloride 1,000 ml @ 100 mls/hr Q10H IV ; Start 01/23/17 at 13:07; Status UNV Sodium Chloride (NS Flush) 2 ml UNSCH PRN IV FLUSH FLUSH AFTER USING IV ACCESS ; Start 01/23/17 at 13:15; Status UNV Sodium Chloride (NS Flush) 2 ml BID IV FLUSH ; Start 01/23/17 at 21:00; Status UNV Acetaminophen (Tylenol) 650 mg Q4H PRN PO TEMP > 100.4; Start 01/23/17 at 13: 15; Status UNV Ondansetron HCl (Zofran Inj) 4 mg Q6H PRN IVP NAUSEA OR VOMITING; Start at 13:15; Status UNV Prochlorperazine (Compazine Supp) [address] NAUSEA OR VOMITING; Start 01/23/17 at 13:15; Status UNV Enoxaparin Sodium (Lovenox Inj) 30 mg Q24H SQ ; Start 01/23/17 at 13:15; Status UNV Acetaminophen (Tylenol) 650 mg Q6H PRN PO PAIN SCALE 1 TO 2; Start 01/23/17 at 13:15; Status UNV Oxycodone/ Acetaminophen (Percocet 5-325 Mg) 1 tab Q6H PRN PO PAIN SCALE 3 TO 5; Start 01/23/17 at 13:15; Status UNV Oxycodone/ Acetaminophen (Percocet 10-325 Mg) 1 tab Q6H PRN PO PAIN SCALE 6 TO 10; Start 01/23/17 at 13:15; Status UNV Morphine Sulfate (Morphine Inj) 2 mg Q3H PRN IV PUSH Pain 3-5; if unable to take PO; Start 01/23/17 at 13:15; Status UNV Morphine Sulfate (Morphine Inj) 4 mg Q3H PRN IV PUSH Pain 6-10;if unable to take PO; Start 01/23/17 at 13:15; Status UNV Naloxone HCl (Narcan Inj) 0.4 mg UNSCH PRN IV PUSH SEE LABEL COMMENTS; Start 01/23/17 at 13:15; Status UNV Senna/Docusate Sodium ([place]wa-Colace) 1 tab BID PO ; Start 01/23/17 at 21:00; Status UNV Magnesium Hydroxide (Milk Of Magnesia Liq) 30 ml Q12H PRN PO Mild constipation ; Start 01/23/17 at 13:15; Status UNV Sennosides (Senokot) 17.2 mg Q12H PRN PO Moderate constipation; Start at 13:15; Status UNV Bisacodyl (Dulcolax Supp) 10 mg DAILY PRN RECTAL SEVERE CONSITIPATION; Start 01/23/17 at 13:15; Status UNV Lactulose (Lactulose Liq) 30 ml DAILY PRN PO SEVERE CONSITIPATION; Start 01/23 at 13:15; Status UNV Amlodipine Besylate (Norvasc) 5 mg DAILY PO ; Start 01/24/17 at 09:00; Status UNV Aspirin (Aspirin Chew) 81 mg DAILY CHEW ; Start 01/24/17 at 09:00; Status UNV Metoprolol Succinate (Toprol Xl) 50 mg BID PO ; Start 01/23/17 at 21:00; Status UNV Prasugrel (Effient) 10 mg DAILY PO ; Start 01/24/17 at 09:00; Status UNV Terazosin HCl (Hytrin) 5 mg HS PO ; Start 01/23/17 at 21:00; Status UNV Non-Formulary Medication 1 puff BID INH ; Start 01/23/17 at 21:00; Status UNV Non-Formulary Medication 10 mg HS PO ; Start 01/23/17 at 21:00; Status UNV Family History Unknown and unobtainable Social History No tobacco alcohol or illicits currently Physical Exam Vital Signs Vital Signs Date Time Temp Pulse Resp B/P (MAP) Pulse Ox O2 Delivery O2 Flow Rate FiO2 01/23/17 11:21 97 20 140/72 (94) 97 Room Air 01/23/17 11:00 98.1 99 20 209/90 (129) 97 Room Air 01/23/17 10:08 78 16 98 Room Air 01/23/17 10:07 97.7 84 16 163/87 (112) 98 Physical Exam GENERAL: This is a well-nourished, well-developed patient, in no apparent distress. SKIN: No rashes, ecchymoses or lesions. Cool and dry. Large sacral buttocks decub stage II to 3 HEAD: Atraumatic. Normocephalic. No temporal or scalp tenderness. EYES: Pupils equal round and reactive. Extraocular motions intact. No scleral icterus. No injection or drainage. ENT: Nose without bleeding, purulent drainage or septal hematoma. Throat without erythema, tonsillar hypertrophy or exudate. Uvula midline. Airway patent. Tongue is dry and midline NECK: Trachea midline. No JVD or lymphadenopathy. Supple, nontender, no meningeal signs. CARDIOVASCULAR: Regular rate and rhythm without murmurs, gallops, or rubs. S1 and S2 no S3 or S4 RESPIRATORY: Clear to auscultation. Breath sounds equal bilaterally. No wheezes , rales, or rhonchi. GASTROINTESTINAL: Abdomen soft, non-tender, nondistended. No hepato-splenomegaly , or palpable masses. No guarding. MUSCULOSKELETAL: Extremities without clubbing, cyanosis, or edema. No joint tenderness, effusion, or edema noted. No calf tenderness. Negative Homans sign bilaterally. NEUROLOGICAL: Awake and alert after sternal rub but very lethargic. Cranial nerves II through XII intact. Motor and sensory grossly within normal limits. 3 out of 5 muscle strength in all muscle groups. Normal speech when aroused. Insight and judgment is limited Mood and behavior is not appropriate. Laboratory Laboratory Tests Test 01/23/17 10:30 01/23/17 10:45 01/23/17 11:13 White Blood Count 7.5 Red Blood Count 3.98 Hemoglobin 12.1 Hematocrit 36.1 Mean Corpuscular Volume 90.6 Mean Corpuscular Hemoglobin 30.4 Mean Corpuscular Hemoglobin Concent 33.5 Red Cell Distribution Width 15.2 Platelet Count 180 Mean Platelet Volume 7.9 Neutrophils (%) (Auto) 72.0 Lymphocytes (%) (Auto) 14.8 Monocytes (%) (Auto) 11.4 Eosinophils (%) (Auto) 1.4 Basophils (%) (Auto) 0.4 Neutrophils # (Auto) 5.4 Lymphocytes # (Auto) 1.1 Monocytes # (Auto) 0.9 Eosinophils # (Auto) 0.1 Basophils # (Auto) 0.0 CBC Comment DIFF FINAL Differential Comment Blood Urea Nitrogen 65 Creatinine 1.38 Random Glucose 112 Total Protein 7.0 Albumin 3.1 Calcium Level 8.4 Alkaline Phosphatase 102 Aspartate Amino Transf (AST/SGOT) 82 Alanine Aminotransferase (ALT/SGPT) 77 Total Bilirubin 1.1 Sodium Level 140 Potassium Level 4.1 Chloride Level 110 Carbon Dioxide Level 21.5 Anion Gap 9 Estimat Glomerular Filtration Rate 49 Total Creatine Kinase 352 Creatine Kinase MB 5.8 Creatine Kinase MB % 1.6 Troponin I 0.02 Thyroid Stimulating Hormone 3rd Gen 0.690 Urine Color YELLOW Urine Turbidity CLEAR Urine pH 5.0 Urine Specific [place] 1.022 Urine Protein TRACE Urine Glucose (UA) NEG Urine Ketones NEG Urine Occult Blood NEG Urine Nitrite NEG Urine Bilirubin NEG Urine Urobilinogen LESS THAN 2.0 Urine Leukocyte Esterase NEG Urine RBC 5 Urine WBC LESS THAN 1 Urine Bacteria RARE Microscopic Urinalysis Comment CULT NOT INDICATED Lactic Acid Level 1.2 Date/Time Source Procedure Growth Status 01/23/17 11:15 Blood Peripheral Aerobic Blood Culture Pending Received 01/23/17 11:15 Blood Peripheral Anaerobic Blood Culture Pending Received Result Diagram: 01/23/17 1030 01/23/17 1030 Imaging Last Impressions Chest X-Ray 01/23/17 1029 Signed Impressions: Service Date/Time: Saturday, January 23, 2017 10:47 - CONCLUSION: Previous bypass, compensated cardiomegaly. Mal Michael MD FACR Caprini VTE Risk Assessment Caprini VTE Risk Assessment: Mod/High Risk (score >= 2) Caprini Risk Assessment Model Point Value = 1 Point Value = 2 Point Value = 3 Point Value = 5 Age 41-60 Minor surgery BMI > 25 kg/m2 Swollen legs Varicose veins or History of unexplained or recurrent spontaneous Oral contraceptives or hormone replacement Sepsis (< 1 month) Serious lung disease, including pneumonia (< 1 month) Abnormal pulmonary function Acute myocardial infarction Congestive heart failure (< 1 month) History of inflammatory bowel disease Medical patient at bed rest Age 61-74 Arthroscopic surgery Major open surgery (> 45 min) Laparoscopic surgery (> 45 min) Malignancy Confined to bed (> 72 hours) Immobilizing plaster cast Central venous access Age >= 75 History of VTE Family history of VTE Factor V Leiden Prothrombin [id number] Lupus anticoagulant Anticardiolipin antibodies Elevated serum homocysteine Heparin-induced thrombocytopenia Other congenital or acquired thrombophilia Stroke (< 1 month) Elective arthroplasty Hip, pelvis, or leg fracture Acute spinal cord injury (< 1 month) Prophylaxis Regimen Total Risk Factor Score Risk Level Prophylaxis Regimen 0-1 Low Early ambulation 2 Moderate Order ONE of the following: *Sequential Compression Device (SCD) *Heparin 5000 units SQ BID 3-4 Higher Order ONE of the following medications: *Heparin 5000 units SQ TID *Enoxaparin/Lovenox 40 mg SQ daily (WT < 150 kg, CrCl > 30 mL/min) *Enoxaparin/Lovenox 30 mg SQ daily (WT < 150 kg, CrCl > 10-29 mL/min) *Enoxaparin/Lovenox 30 mg SQ BID (WT < 150 kg, CrCl > 30 mL/min) AND/OR *Sequential Compression Device (SCD) 5 or more Highest Order ONE of the following medications: *Heparin 5000 units SQ TID (Preferred with Epidurals) *Enoxaparin/Lovenox 40 mg SQ daily (WT < 150 kg, CrCl > 30 mL/min) *Enoxaparin/Lovenox 30 mg SQ daily (WT < 150 kg, CrCl > 10-29 mL/min) *Enoxaparin/Lovenox 30 mg SQ BID (WT < 150 kg, CrCl > 30 mL/min) AND *Sequential Compression Device (SCD) Assessment and Plan Problem List: (1) Generalized weakness ICD Code: R53.1 - Weakness (2) Decubitus ulcers ICD Code: L89.90 - Pressure ulcer of unspecified site, unspecified stage (3) Renal insufficiency ICD Code: N28.9 - Disorder of kidney and ureter, unspecified (4) Coronary artery disease ICD Code: I25.10 - Atherosclerotic heart disease of platinum coronary artery without angina pectoris (5) Hyperlipidemia ICD Code: E78.5 - Hyperlipidemia, unspecified (6) Hypertension ICD Code: I10 - Essential (primary) hypertension Assessment and Plan Generalized weakness continue on fluids physical therapy and occupational therapy We'll get CAT scan of head Urinalysis is negative Chest x-ray is negative We'll check an ammonia level Renal insufficiency/dehydration continue on aggressive fluid rehydration Possible dementia will determine based upon how he does BPH continue home medications Hypertension continue on home medications Hyperlipidemia continue on home medications Aggressive physical therapy and occupational therapy May need SNF at discharge Stage II to 3 decub continue on current treatment and wound care nurse to evaluate and treat as well as a specialty bed turn multiple times during shift GI prophylaxis and DVT prophylaxis Palliative care consult Code Status Full code Discussed Condition With Discussed with RN and patient and ER physician Physician Certification 2 Midnight Certification Type: Admission for Inpatient Services Order for Inpatient Services The services are ordered in accordance with Medicare regulations or non- Medicare payer requirements, as applicable. In the case of services not specified as inpatient-only, they are appropriately provided as inpatient services in accordance with the 2-midnight benchmark. Estimated LOS (days): 3 3 days is the estimated time the patient will need to remain in the hospital, assuming treatment plan goals are met and no additional complications. Post-Hospital Plan: Not yet determined Mal Feldman DO Jan 23, 2017 13:59
[2017-01-23 14:36] VITALS: BP 128/67; PULSE 110; RESP 20; TEMP 98.9; O2SAT 98
--- NOTE | 2017-01-23 14:51 | PD.CONS ---
Consult Service Palliative Care Consult Requested By Dr. Feldman . Primary Care Physician Unknown Reason for Consultation a. To assist with evaluation and management of symptoms including: Weakness , pain, confusion b. To assist medical decision maker(s) with: better understanding of current medical conditions; weighing benefits/burdens of medical treatment options; making medical treatment decisions. . HPI History of Present Illness This is an 86-year-old male with a past history of coronary artery disease status post CABG and AVR, colon cancer and hypertension who was admitted 01/23 with severe dehydration and possible sepsis. He had been seen in [place] 01/18 for dyspnea and evaluated through the chest pain center for 24 hours then discharged home. According to his he was at his normal state of oriented mentation when he arrived home from his previous admission and when he left home today. He had been at his normal baseline physical condition when he returned home after his 01/18- daily at [place], and walked in the house from the taxi cab but continued to weaken until today, when he was unable to stand. The called EMS to have someone help him to the stool, but EMS felt his condition warranted evaluation at the hospital. The patient agreed and he was transported by ambulance. At the ED, the patient was found to be quite somnolent, responding to sternal rub but otherwise very weak. At this evaluation he is arousable to voice, but confused and unable to answer questions. ED course: * Laboratory: WBC 7.5, Hgb 12.1, HCT 36.1, PLT 180, sodium 140, potassium 4.1, BUN 65, creatinine 1.38, normal transaminase, troponin less than 0.02, TSH 0.690 , normal urinalysis. * Vital signs: BP 163/87, pulse 84, RR 16, temp 97.7, O2 saturation 98% on room air. * Radiology: Chest x-ray shows previous bypass, compensated cardiomegaly. . Function/Cognitive Trajectory According to his , he had been able to take care of his ADLs but was very sedentary. The had noticed some intermittent confusion and loss of appetite recently over the prior week, but could not verify any long-term trajectory of cognitive or functional decline. . Review of Systems ROS Limitations: Clinical Condition, Altered Mental Status Past Family Social History Coded Allergies: No Known Allergies (Verified , 01/20/13) Past Medical History Osteoarthritis History of colon cancer Hyperlipidemia Coronary artery disease history of aortic valve surgery and bypass surgery Hypertension BPH . Past Surgical History Bowel resection Aortic valve replacement in 2008 CABG 3 . Reported Medications Reported Meds & Active Scripts Active Zofran Odt (Ondansetron Odt) 8 Mg Tab 8 Mg SL Q12H PRN Reported Effient (Prasugrel) 10 Mg Tab 10 Mg PO DAILY Advair Diskus Inh (Fluticasone-Salmeterol Inh) 500-50 Mcg/Blist Aer 1 Puff INH BID Rinse mouth after use. Amlodipine (Amlodipine Besylate) 5 Mg Tab 5 Mg PO DAILY Aspirin 81 Mg Chew 81 Mg CHEW DAILY Metoprolol Succinate ER 24 HR (Metoprolol Succinate) 50 Mg Tab 50 Mg PO BID Crestor (Rosuvastatin Calcium) 10 Mg Tab 10 Mg PO HS Terazosin (Terazosin HCl) 5 Mg Cap 5 Mg PO HS . Current Medications Medications (Trade) Dose Ordered Sig/Rios Route Start Time Stop Time Status Last Admin (Catapres) 0.1 mg Q4H PRN PO 01/23/17 13:15 Sodium Chloride 1,000 ml @ 100 mls/hr Q10H IV 01/23/17 13:00 (NS Flush) 2 ml UNSCH PRN IV FLUSH 01/23/17 13:15 UNV (NS Flush) 2 ml BID IV FLUSH 01/23/17 21:00 UNV (Tylenol) 650 mg Q4H PRN PO 01/23/17 13:15 (Zofran Inj) 4 mg Q6H PRN IVP 01/23/17 13:15 UNV (Compazine Supp) 25 mg Q12H PRN NH 01/23/17 13:15 UNV (Lovenox Inj) 30 mg Q24H SQ 01/23/17 15:00 (Tylenol) 650 mg Q6H PRN PO 01/23/17 13:15 (Percocet 5-325 Mg) 1 tab Q6H PRN PO 01/23/17 13:15 UNV (Percocet 10-325 Mg) 1 tab Q6H PRN PO 01/23/17 13:15 UNV (Morphine Inj) 2 mg Q3H PRN IV PUSH 01/23/17 13:15 (Morphine Inj) 4 mg Q3H PRN IV PUSH 01/23/17 13:15 (Narcan Inj) 0.4 mg UNSCH PRN IV PUSH 01/23/17 13:15 UNV (Ewa-Colace) 1 tab BID PO 01/23/17 21:00 (Milk Of Magnesia Liq) 30 ml Q12H PRN PO 01/23/17 13:15 (Senokot) 17.2 mg Q12H PRN PO 01/23/17 13:15 UNV (Dulcolax Supp) 10 mg DAILY PRN RECTAL 01/23/17 13:15 (Lactulose Liq) 30 ml DAILY PRN PO 01/23/17 13:15 (Norvasc) 5 mg DAILY PO 01/24/17 09:00 (Aspirin Chew) 81 mg DAILY CHEW 01/24/17 09:00 (Toprol Xl) 50 mg BID PO 01/23/17 21:00 (Effient) 10 mg DAILY PO 01/24/17 09:00 UNV (Hytrin) 5 mg HS PO 01/23/17 21:00 UNV Non-Formulary Medication 1 puff BID INH 01/23/17 21:00 UNV Non-Formulary Medication 10 mg HS PO 01/23/17 21:00 UNV (Pepcid Inj) 10 mg Q12HR IV PUSH 01/23/17 15:00 . Family History Father at age 82 of natural causes, mother at age 79 of natural causes. . Substance Use Tobacco: Smoked 2-3 packs a day up until age 33 and then quit. Alcohol: No use of alcohol. Prescription med abuse: No prescription drug abuse. Illicits: No illicit drug abuse. . Psychosocial History He was born in [place] and moved to [place] 25 years ago. He was briefly in the service according to his , but she could not verify which branch. They have 1 daughter who lives in [place]. He lives with his . They have been over 60 years. . Spiritual/Cultural Factors Spirituality is not an important factor to him. . Living Will: Completed, but not made available Health Care Surrogate: Completed, but not made available Durable Power of Top Stitcher: Completed, but not made available Physical Exam Vital Signs Date Time Temp Pulse Resp B/P (MAP) Pulse Ox O2 Delivery O2 Flow Rate FiO2 01/23/17 14:00 01/23/17 11:21 97 20 140/72 (94) 97 Room Air 01/23/17 11:00 98.1 99 20 209/90 (129) 97 Room Air 01/23/17 10:08 78 16 98 Room Air 01/23/17 10:07 97.7 84 16 163/87 (112) 98 Exam CONSTITUTIONAL/GENERAL: This is an adequately nourished patient, in no apparent distress. TUBES/LINES/DRAINS: PIV left hand SKIN: No jaundice, rashes, or lesions. Ecchymoses on upper extremities. No wounds seen anteriorly. Skin temperature appropriate. Not diaphoretic. HEAD: Atraumatic. Normocephalic. EYES: Pupils equal and round and reactive. Extraocular motions intact. No scleral icterus. No injection or drainage. Fundi not examined. ENT: Hearing grossly normal. Nose without bleeding or purulent drainage. Throat without visible erythema, exudates, masses, or lesions, poor dentition. NECK: Trachea midline. Supple, nontender. No palpable thyroid enlargement or nodularity. CARDIOVASCULAR: S1, S2, Regular rhythm, controlled rate without murmurs, gallops , or rubs. No JVD. Peripheral pulses symmetric. RESPIRATORY/CHEST: Symmetric, unlabored respirations. Scattered wheezes, diminished breath sounds. GASTROINTESTINAL: Abdomen soft, non-tender, nondistended. No hepato-splenomegaly , or palpable masses. No guarding. Bowel sounds present. GENITOURINARY: Without palpable bladder distension. MUSCULOSKELETAL: Extremities without clubbing, cyanosis. 1+ dependent edema. No joint tenderness or effusion noted. No calf tenderness. No mottling or clubbing. NEUROLOGICAL: Lethargic, arousable, not oriented. PSYCHIATRIC: Confused . Diagnostic Tests Laboratory Laboratory Tests Test 01/23/17 10:30 01/23/17 10:45 01/23/17 11:13 White Blood Count 7.5 TH/MM3 (4.0-11.0) Red Blood Count 3.98 MIL/MM3 (4.50-5.90) Hemoglobin 12.1 GM/DL (13.0-17.0) Hematocrit 36.1 % (39.0-51.0) Mean Corpuscular Volume 90.6 FL (80.0-100.0) Mean Corpuscular Hemoglobin 30.4 PG (27.0-34.0) Mean Corpuscular Hemoglobin Concent 33.5 % (32.0-36.0) Red Cell Distribution Width 15.2 % (11.6-17.2) Platelet Count 180 TH/MM3 (150-450) Mean Platelet Volume 7.9 FL (7.0-11.0) Neutrophils (%) (Auto) 72.0 % (16.0-70.0) Lymphocytes (%) (Auto) 14.8 % (9.0-44.0) Monocytes (%) (Auto) 11.4 % (0.0-8.0) Eosinophils (%) (Auto) 1.4 % (0.0-4.0) Basophils (%) (Auto) 0.4 % (0.0-2.0) Neutrophils # (Auto) 5.4 TH/MM3 (1.8-7.7) Lymphocytes # (Auto) 1.1 TH/MM3 (1.0-4.8) Monocytes # (Auto) 0.9 TH/MM3 (0-0.9) Eosinophils # (Auto) 0.1 TH/MM3 (0-0.4) Basophils # (Auto) 0.0 TH/MM3 (0-0.2) CBC Comment DIFF FINAL Differential Comment Blood Urea Nitrogen 65 MG/DL (7-18) Creatinine 1.38 MG/DL (0.60-1.30) Random Glucose 112 MG/DL (74-106) Total Protein 7.0 GM/DL (6.4-8.2) Albumin 3.1 GM/DL (3.4-5.0) Calcium Level 8.4 MG/DL (8.5-10.1) Alkaline Phosphatase 102 U/L (45-117) Aspartate Amino Transf (AST/SGOT) 82 U/L (15-37) Alanine Aminotransferase (ALT/SGPT) 77 U/L (12-78) Total Bilirubin 1.1 MG/DL (0.2-1.0) Sodium Level 140 MEQ/L (136-145) Potassium Level 4.1 MEQ/L (3.5-5.1) Chloride Level 110 MEQ/L (98-107) Carbon Dioxide Level 21.5 MEQ/L (21.0-32.0) Anion Gap 9 MEQ/L (5-15) Estimat Glomerular Filtration Rate 49 ML/MIN (>89) Total Creatine Kinase 352 U/L (39-308) Creatine Kinase MB 5.8 NG/ML (0.5-3.6) Creatine Kinase MB % 1.6 % (0.0-4.0) Troponin I 0.02 NG/ML (0.02-0.05) Thyroid Stimulating Hormone 3rd Gen 0.690 uIU/ML (0.358-3.740) Urine Color YELLOW (YELLW/STRAW) Urine Turbidity CLEAR (CLEAR) Urine pH 5.0 (5.0-8.5) Urine Specific [place] 1.022 (1.002-1.035) Urine Protein TRACE mg/dL (NEG-TRACE) Urine Glucose (UA) NEG mg/dL (NEG) Urine Ketones NEG mg/dL (NEG) Urine Occult Blood NEG (NEG) Urine Nitrite NEG (NEG) Urine Bilirubin NEG (NEG) Urine Urobilinogen LESS THAN 2.0 MG/DL (LESS Urine Leukocyte Esterase NEG (NEG) Urine RBC 5 /hpf (0-3) Urine WBC LESS THAN 1 /hpf (0-5) Urine Bacteria RARE /hpf (NONE) Microscopic Urinalysis Comment CULT NOT INDICATED Lactic Acid Level 1.2 mmol/L (0.4-2.0) . Result Diagram: 01/23/17 1030 01/23/17 1030 Microbiology Microbiology Date/Time Source Procedure Growth Status 01/23/17 11:15 Blood Peripheral Aerobic Blood Culture Pending Received 01/23/17 11:15 Blood Peripheral Anaerobic Blood Culture Pending Received 01/23/17 11:10 Blood Peripheral Aerobic Blood Culture Pending Received 01/23/17 11:10 Blood Peripheral Anaerobic Blood Culture Pending Received Imaging Last Impressions Chest X-Ray 01/23/17 1029 Signed Impressions: Service Date/Time: Monday, January 23, 2017 10:47 - CONCLUSION: Previous bypass, compensated cardiomegaly. Mal Michael MD FACR Patient/Family Conference Present at Family Conference: Spoke with via phone. Reviewed palliative care focus and purpose as itemized below. Conducted lifetime review. She states she cannot come to the hospital because she has a little dog at home to take care of. Discussed his current medical conditions and addressed CODE STATUS. Per his , who by [place] statutes would be the proxy decision-maker, as the is currently unable to make his decisions due to confusion, the patient would like to be a FULL CODE at this time. . Family Conference Location: Telephone Issues Discussed: * Palliative care role, purpose, approach * Additional medical, psychosocial, and spiritual history * Patients general health, functional status, and cognitive changes in the months leading up to the current hospitalization * Patient/family understanding of the current medical problems * Patient/family understanding of prognosis * Patients goals of care as best understood from advance directives and/or conversations and/or values * Current medical treatment options and benefits/burdens of those options * Likely scenarios comparing ongoing aggressive care with a transition to comfort measures only * Questions answered to the best of my ability * Palliative care contact information provided Assessment and Plan Disease Oriented Problem List: (1) Generalized weakness (2) Decubitus ulcers (3) Coronary artery disease (4) Hypertension (5) Renal insufficiency Symptom Scale: (1) Weakness (2) Confusion (3) Pain, generalized Pertinent Non-Medical Issues Psychosocial:He was born in [place] and moved to [place] 25 years ago. He was briefly in the service according to his , but she could not verify which branch. They have 1 daughter who lives in [place]. He lives with his . They have been over 60 years. . Spiritual: Spirituality is not an important factor to him. . Legal: The patient is currently confused and unable to make his own decisions. Per [place] statute his , Patsy Alexander, would be the healthcare proxy. I have discussed this with her and she is willing to be the decision-maker. . Ethical issues impacting care: None noted. . Important Contacts : Patsy Alexander . Prognosis His prognosis is poor. This is his second ED admission in a week. At this time tests are inconclusive. He has had no long-term hospitalizations but has developed a stage II to 3 decubitus ulcer on his sacrum, likely due to progressive sedentary behavior. His appetite has recently begun to decline and he is developing intermittent confusion, consistent with failure to thrive. He has have expressed concern lately that he may be developing dementia. He is at elevated risk for recurrent complications and hospitalizations. Code Status: Full Code Plan PLAN: Legal decision maker: The patient is currently confused and unable to make his own decisions. Per [place] statutes, his Patsy, would be the proxy decision maker. She is willing to serve in that role per my discussion with her. Goals: Aggressive at this time. CODE STATUS: Full code. SYMPTOMS: * Weakness: Patient is currently too lethargic to participate in physical therapy. The cause of his weakness at this time is undetermined. Ammonia lab is pending. He is currently receiving fluids for dehydration. * Pain: He is at risk for increased pain due to his sacral decubitus. Per his he has chronic discomfort in his legs and knees. He was recently hospitalized for what his describes as severe chest pain. Cardiac workup at that admission was negative. No pulmonary embolus was seen. Percocet and morphine are available as needed. Due to patient's confusion close nursing assessments will be required to determine nonverbal signs of pain. * Confusion: This is a new onset per his . She states that it has been intermittent over the last few weeks that he has had brief episodes of confusion. Urinalysis was negative and laboratory studies were inconclusive for any cause. His states that he was not confused when he left home however at the ED he was found to be very somnolent and is confused at this evaluation. He may benefit from a neurological evaluation to evaluate for possible dementia. SUMMARY: This is an 86-year-old male admitted with severe weakness 4 days after being discharged from the hospital for chest pain. He is developing confusion, which has been intermittent over the last few weeks. The at this time wishes to continue with aggressive goals to include FULL CODE. She has requested that I keep updated by phone as she is unable to come to the hospital. Palliative care will continue to follow the patient during hospital course as condition evolves, to assist patient/decision-maker with understanding of their medical conditions, weighing benefits/burdens of treatment options, for clarification of goals of treatment. Additionally will assist with any symptoms of palliative concern. . Thank you for the opportunity to participate in the care of Mr. Alexander. Attestation To help prompt me to consider important information that might be impacting today's encounter and assessment, information from prior notes written by myself or my colleagues may have been "brought forward" into today's note. My signature on this note, however, is an attestation that I personally performed the exam, history, and/or decision-making noted today, and, unless otherwise indicated, the interactions with patient, family, and staff as well as the review of records all occurred today. I also attest that the listed assessment and stated plan reflect my best clinical judgment today based on the combination of historical information, prior notes, and today's exam/ interactions. When time spent is documented, it refers only to time spent today by the signer, or if indicated, combined time spent today by collaborating physician/nurse practitioner. . Sirena Acevedo Jan 23, 2017 14:51
[2017-01-23] MEDS: FAMOTIDINE 20 MG/2 ML VIAL IV PUSH SCH ×2 (16:03→22:52)
[2017-01-23] MEDS: ENOXAPARIN SODIUM 30 MG/0.3 ML SYRINGE SQ SCH (16:04)
--- NOTE | 2017-01-23 16:51 | PD.WCN.NOT ---
Wound Consult Description: Consult for Wound Management of multiple decubs per Dr Feldman Communicated with: Dr Gaston Hilario,RN Recommendation: Skin is too fragile for dressings to bilateral buttock areas due to incontinence associated dermatitis with blanching erythema. Therefore: Calazime skin protectant BID and PRN for moisture/friction related partial thickness skinloss to bilateral buttocks and leave open to air. Reposition patient from left to right every 2 hours and PRN for therapy/ procedures. Obtain and place patient on [facility] specialty bed and use only 1 underpad for moisture. Additional Information: Patient seen on [address] [place] [address] for multiple partial thickness skin loss areas noted to bilateral buttocks. Wound on left buttock presents as mixed etiology pressure, moisture, friction measuring 4cm x 2.5m x <0.1cm of moist red non granulating tissue without active drainage. Left lateral buttock and lower buttock wounds present as unroofed blisters with jagged wound margins and partial thickness skinloss. Multiple right buttock wounds are mixed etiology (Stage II) with partial thickness skin loss, largest measuring 2cm x 1cm <0.1cm, 2nd and third wounds measure ~1cm x 1cm x <0.1cm, and smallest wound measures ~0.5cm x 0.5cm x <0.1cm. There is no active drainage and no wound odor. Patient smells of urine , per ELIZABETH Hilario patient has been bathed today. Recommend to bathe patient daily , keep dry, use Calazime BID and PRN, and reposition every 2 hours from left to right to allow buttock to air dry. Tamia Beckett [facility] Jan 23, 2017 16:51
--- NOTE | 2017-01-23 17:13 | RADRPT ---
EXAM DATE/TIME: 01/23/2017 16:58 [facility] COMPARISON: CT PULMONARY ANGIOGRAM, January 17, 2017, 21:10. CT BRAIN W/O CONTRAST, January 17, 2017, 21:06. INDICATIONS : Altered mental status. RADIATION DOSE: 69.1 CTDIvol (mGy) MEDICAL HISTORY : Cardiovascular disease. Hypertension. Carcinoma, colon. SURGICAL HISTORY : None. ENCOUNTER: Initial ACUITY: 1 day PAIN SCALE: 0/10 LOCATION: cranial TECHNIQUE: Multiple contiguous axial images were obtained of the head. Using automated exposure control and adj ustment of the mA and/or kV according to patient size, radiation dose was kept as low as reasonably a chievable to obtain optimal diagnostic quality images. DICOM format image data is available electro nically for review and comparison. FINDINGS: CEREBRUM: The ventricles are normal for age. The the exam demonstrates cortical atrophy and microvascular ische collin demyelinative change. No evidence of midline shift, mass lesion, hemorrhage or acute infarction. No extra-axial fluid collections are seen. POSTERIOR FOSSA: The cerebellum and brainstem are intact. The 4th ventricle is midline. The cerebellopontine angle i s unremarkable. EXTRACRANIAL: The visualized portion of the orbits is intact. SKULL: The calvaria is intact. No evidence of skull fracture. CONCLUSION: 1. 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 No acute intracranial abnormalit y. Stable compared to previous dated 01/17/17. Daren Michael MD on January 23, 2017 at 17:09 Board Certified Radiologist. This report was verified electronically.
[2017-01-23 18:47] LABS: PROTHROMBIN TIME - PATIENT 11.6 SEC (9.8-11.6)
[2017-01-23] MEDS: SODIUM CHLOR 0.9% 1000 ML INJ 1,000 ML IV SCH ×2 (19:52→22:57)
[2017-01-23 20:00] VITALS: BP 150/69; PULSE 113; RESP 18; TEMP 98.5; O2SAT 98
[2017-01-23] MEDS ORDERED: ATORVASTATIN 20 MG TAB PO SCH (21:00)
[2017-01-23] MEDS: TERAZOSIN HCL 5 MG CAP PO SCH (22:42)
[2017-01-23] MEDS: METOPROLOL SUCCINATE 50 MG EXTENDED RELEASE TAB PO SCH (22:42)
[2017-01-23] MEDS: BUDESONIDE-FORMOTEROL 160/4.5 MCG INHALER INH SCH (22:43)
[2017-01-23] MEDS: SODIUM CHLORIDE 0.9% FLUSH 10 ML FLUSH IV FLUSH SCH (22:43)
[2017-01-23] MEDS: DOCUSATE SODIUM 50 MG/SENNA 8.6 MG TAB PO SCH (22:50)
[2017-01-23 23:30] VITALS: PULSE 98
[2017-01-24] VITALS (13 sets, daily range): BP systolic 112–167; BP diastolic 58–86; PULSE 52–97; RESP 18–20; TEMP 97.3–98.3; O2SAT 95–98
[2017-01-24] MEDS: SODIUM CHLOR 0.9% 1000 ML INJ 1,000 ML IV SCH ×3 (07:45→17:45)
[2017-01-24] MEDS: oxyCODONE/ACETAMINOPHEN 5 MG/325 MG TAB PO PRN ×2 (07:55→14:12)
[2017-01-24 08:40] LABS: AUTOMATED NEUTROPHIL # 4.6 TH/MM3 (1.8-7.7); BASOPHIL % 0.3 % (0.0-2.0); EOSINOPHIL # 0.2 TH/MM3 (0-0.4); EOSINOPHIL % 2.5 % (0.0-4.0); HEMATOCRIT 35.5 % (39.0-51.0); HEMO FLAGS DIFF FINAL; LYMPH % 14.2 % (9.0-44.0); LYMPHOCYTE # 0.9 TH/MM3 (1.0-4.8); MEAN CELL VOLUME 90.5 FL (80.0-100.0); MEAN CORPUSCULAR HEMOGLOBIN 30.9 PG (27.0-34.0); MEAN CORPUSCULAR HGB CONC 34.2 % (32.0-36.0); MONO % 11.1 % (0.0-8.0); NEUT % 71.9 % (16.0-70.0); PLATELET COUNT 172 TH/MM3 (150-450); RED BLOOD COUNT 3.93 MIL/MM3 (4.50-5.90); WHITE BLOOD COUNT 6.4 TH/MM3 (4.0-11.0)
[2017-01-24] MEDS ORDERED: ASPIRIN 81 MG CHEW TAB CHEW SCH (09:00)
[2017-01-24] MEDS ORDERED: PRASUGREL 10 MG TAB PO SCH (09:00)
[2017-01-24 09:10] LABS: ALKALINE PHOSPHATASE 88 U/L (45-117); ALT (GPT) 55 U/L (12-78); ANION GAP 7 MEQ/L (5-15); AST (GOT) 43 U/L (15-37); BICARBONATE 25.4 MEQ/L (21.0-32.0); BLOOD UREA NITROGEN 42 MG/DL (7-18); CHLORIDE 112 MEQ/L (98-107); FREE T4 1.27 NG/DL (0.76-1.46); GLOMERULAR FILTRATION RATE 65 ML/MIN (>89); POTASSIUM 4.1 MEQ/L (3.5-5.1); SODIUM (NA) 144 MEQ/L (136-145); TOTAL BILIRUBIN ADULT 0.9 MG/DL (0.2-1.0)
[2017-01-24] MEDS: FAMOTIDINE 20 MG/2 ML VIAL IV PUSH SCH ×2 (10:07→21:40)
[2017-01-24] MEDS: amLODIPine BESYLATE 5 MG TAB PO SCH (10:07)
[2017-01-24] MEDS: DOCUSATE SODIUM 50 MG/SENNA 8.6 MG TAB PO SCH ×2 (10:07→21:40)
[2017-01-24] MEDS: METOPROLOL SUCCINATE 50 MG EXTENDED RELEASE TAB PO SCH ×2 (10:07→21:40)
[2017-01-24] MEDS: SODIUM CHLORIDE 0.9% FLUSH 10 ML FLUSH IV FLUSH SCH ×2 (10:07→21:40)
[2017-01-24] MEDS: BUDESONIDE-FORMOTEROL 160/4.5 MCG INHALER INH SCH ×2 (10:08→21:40)
--- NOTE | 2017-01-24 11:43 | HHI.PR ---
Subjective Remarks Patient is very somnolent. He reports he has been having issues with memories for the past 4-5 years. He denies any pain currently. Objective Vitals Vital Signs Date Time Temp Pulse Resp B/P (MAP) Pulse Ox O2 Delivery O2 Flow Rate FiO2 01/24/17 08:00 98.3 65 18 114/58 (76) 97 01/24/17 07:35 86 01/24/17 04:00 98.2 97 20 128/65 (86) 98 01/24/17 00:00 97.3 96 18 155/58 (90) 96 01/23/17 23:30 98 01/23/17 20:00 98.5 113 18 150/69 (96) 98 01/23/17 14:36 98.9 110 20 128/67 (87) 98 01/23/17 14:00 Result Diagram: 01/24/17 0805 01/24/17 0805 Objective Remarks GENERAL: Patient appeared to be very deconditioned. Intermittently confused. Somnolent CARDIOVASCULAR: Normal rate and regular rhythm without murmurs, gallops, or rubs. RESPIRATORY: Good respiratory efforts. Breath sounds equal and clear to auscultation bilaterally. GASTROINTESTINAL: Abdomen soft, non-tender, non-distended. Normal active bowel sounds MUSCULOSKELETAL: Extremities without cyanosis, or edema. NEURO: Aware of self and place only. Intermittent confusion PSYCH: Calm. A/P Problem List: (1) Generalized weakness ICD Code: R53.1 - Weakness (2) Decubitus ulcers ICD Code: L89.90 - Pressure ulcer of unspecified site, unspecified stage (3) Renal insufficiency ICD Code: N28.9 - Disorder of kidney and ureter, unspecified (4) Coronary artery disease ICD Code: I25.10 - Atherosclerotic heart disease of [place] coronary artery without angina pectoris (5) Hyperlipidemia ICD Code: E78.5 - Hyperlipidemia, unspecified (6) Hypertension ICD Code: I10 - Essential (primary) hypertension Assessment and Plan 86-year-old male brought into the hospital for weakness. Patient appeared to be encephalopathic. It is unclear if he has underlying history of dementia. His denies but patient reports his memory has been declining over the past 4-5 years. His LFTs and ammonia levels are elevated. Encephalopathy: ? Hepatic vs possible worsening dementia. Head CT shows cortical atrophy and microvascular changes but did not reveal any acute abnormalities - We'll obtain liver ultrasound - Consult GI - Start scheduled lactulose twice a day and monitor response Physical deconditioning: continue on fluids physical therapy and occupational therapy Renal insufficiency/dehydration continue on aggressive fluid rehydration BPH continue home medications Hypertension continue on home medications Hyperlipidemia: continue on home medications Stage II to 3 decub continue on current treatment and wound care nurse to evaluate and treat as well as a specialty bed turn multiple times during shift GI prophylaxis and DVT prophylaxis Palliative care consulted Discharge Planning Will likely need [facility] Jaclyn Berman MD Jan 24, 2017 11:43
[2017-01-24] MEDS: LACTULOSE SYRUP 20 GM/30 ML CUP PO SCH ×2 (12:14→21:40)
--- NOTE | 2017-01-24 15:06 | HHI.HCPN ---
Reason for visit a. To assist with evaluation and management of symptoms including: Weakness , pain, confusion b. To assist medical decision maker(s) with: better understanding of current medical conditions; weighing benefits/burdens of medical treatment options; making medical treatment decisions. . Subjective/Interval History Less confused this morning. Speech is halting but he is able to say he is in the hospital, it is December 2016, he is here for weakness and that he was unable to stand so he had to be brought to the hospital, which is an improvement from yesterday when he was barely able to talk. Renal indices are improving with rehydration. Interim course: * Laboratory: WBC 6.4, Hgb 12.1, HCT 35.5, PLT 172, sodium 144, potassium 4.1, BUN 42, creatinine 1.08. Ammonia is mildly elevated at 41 and troponin is mildly elevated at 0.06. Blood cultures are negative 1 day. * Vital signs: BP 163/87, pulse 84, RR 16, temp 97.7, O2 saturation 98% on room air. * Radiology: Chest x-ray shows previous bypass, compensated cardiomegaly. 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 Recommending calazime skin protectant twice a day and when necessary. * PT: Recommending rehabilitation. Patient unable to maintain posture, requires max assist 2 for sit to stand, incontinent of urine upon standing. . Family/friend interactions Spoke with , Patsy, and updated her as to clinical findings and patient progress. Advised her that rehabilitation would likely be necessary. She states that she is not sure she can take care of him at home, since he is nonambulatory at this time. She is 87 and frail and has had to call emergency services twice to help get the patient up when he fell. She would like a rehabilitation facility near [facility] as her mobility is limited. I did ask the if they would like their daughter, who lives in [place], to be involved and she stated emphatically "no, she is not interested in helping with any of this ". . Advance Directives Living Will: Completed, but not made available Health Care Surrogate: Completed, but not made available Durable Power of Restaurant Hourly Manager: Completed, but not made available Objective Vital Signs Date Time Temp Pulse Resp B/P (MAP) Pulse Ox O2 Delivery O2 Flow Rate FiO2 01/24/17 13:55 73 01/24/17 12:00 97.9 81 20 112/62 (79) 96 01/24/17 08:00 98.3 65 18 114/58 (76) 97 01/24/17 07:35 86 01/24/17 04:00 98.2 97 20 128/65 (86) 98 01/24/17 00:00 97.3 96 18 155/58 (90) 96 01/23/17 23:30 98 01/23/17 20:00 98.5 113 18 150/69 (96) 98 01/23/17 14:36 98.9 110 20 128/67 (87) 98 Intake & Output 01/24/17 01/24/17 07:00 19:00 Intake Total 1000 ml Balance 1000 ml Intake IV Total 1000 ml # Voids 4 . Physical Exam CONSTITUTIONAL/GENERAL: This is an adequately nourished patient, in no apparent distress. TUBES/LINES/DRAINS: PIV left hand SKIN: No jaundice, rashes, or lesions. Ecchymoses on upper extremities. No wounds seen anteriorly. Skin temperature appropriate. Not diaphoretic. CARDIOVASCULAR: S1, S2, Regular rhythm, controlled rate without murmurs, gallops , or rubs. No JVD. Peripheral pulses symmetric. RESPIRATORY/CHEST: Symmetric, unlabored respirations. Scattered wheezes, diminished breath sounds. GASTROINTESTINAL: Abdomen soft, non-tender, nondistended. No hepato-splenomegaly , or palpable masses. No guarding. Bowel sounds present. GENITOURINARY: Without palpable bladder distension. MUSCULOSKELETAL: Extremities without clubbing, cyanosis. 1+ dependent edema. No joint tenderness or effusion noted. No calf tenderness. No mottling or clubbing. NEUROLOGICAL: More alert, able to provide place (hospital), month and year and purpose of admission (weakness). PSYCHIATRIC: Cooperative . Diagnostic Tests Laboratory Laboratory Tests Test 01/23/17 10:30 01/23/17 10:45 01/23/17 11:13 01/23/17 18:06 White Blood Count 7.5 TH/MM3 (4.0-11.0) Red Blood Count 3.98 MIL/MM3 (4.50-5.90) Hemoglobin 12.1 GM/DL (13.0-17.0) Hematocrit 36.1 % (39.0-51.0) Mean Corpuscular Volume 90.6 FL (80.0-100.0) Mean Corpuscular Hemoglobin 30.4 PG (27.0-34.0) Mean Corpuscular Hemoglobin Concent 33.5 % (32.0-36.0) Red Cell Distribution Width 15.2 % (11.6-17.2) Platelet Count 180 TH/MM3 (150-450) Mean Platelet Volume 7.9 FL (7.0-11.0) Neutrophils (%) (Auto) 72.0 % (16.0-70.0) Lymphocytes (%) (Auto) 14.8 % (9.0-44.0) Monocytes (%) (Auto) 11.4 % (0.0-8.0) Eosinophils (%) (Auto) 1.4 % (0.0-4.0) Basophils (%) (Auto) 0.4 % (0.0-2.0) Neutrophils # (Auto) 5.4 TH/MM3 (1.8-7.7) Lymphocytes # (Auto) 1.1 TH/MM3 (1.0-4.8) Monocytes # (Auto) 0.9 TH/MM3 (0-0.9) Eosinophils # (Auto) 0.1 TH/MM3 (0-0.4) Basophils # (Auto) 0.0 TH/MM3 (0-0.2) CBC Comment DIFF FINAL Differential Comment Blood Urea Nitrogen 65 MG/DL (7-18) Creatinine 1.38 MG/DL (0.60-1.30) Random Glucose 112 MG/DL (74-106) Total Protein 7.0 GM/DL (6.4-8.2) Albumin 3.1 GM/DL (3.4-5.0) Calcium Level 8.4 MG/DL (8.5-10.1) Alkaline Phosphatase 102 U/L (45-117) Aspartate Amino Transf (AST/SGOT) 82 U/L (15-37) Alanine Aminotransferase (ALT/SGPT) 77 U/L (12-78) Total Bilirubin 1.1 MG/DL (0.2-1.0) Sodium Level 140 MEQ/L (136-145) Potassium Level 4.1 MEQ/L (3.5-5.1) Chloride Level 110 MEQ/L (98-107) Carbon Dioxide Level 21.5 MEQ/L (21.0-32.0) Anion Gap 9 MEQ/L (5-15) Estimat Glomerular Filtration Rate 49 ML/MIN (>89) Total Creatine Kinase 352 U/L (39-308) 287 U/L (39-308) Creatine Kinase MB 5.8 NG/ML (0.5-3.6) Creatine Kinase MB % 1.6 % (0.0-4.0) Troponin I 0.02 NG/ML (0.02-0.05) 0.06 NG/ML (0.02-0.05) Thyroid Stimulating Hormone 3rd Gen 0.690 uIU/ML (0.358-3.740) Urine Color YELLOW (YELLW/STRAW) Urine Turbidity CLEAR (CLEAR) Urine pH 5.0 (5.0-8.5) Urine Specific [place] 1.022 (1.002-1.035) Urine Protein TRACE mg/dL (NEG-TRACE) Urine Glucose (UA) NEG mg/dL (NEG) Urine Ketones NEG mg/dL (NEG) Urine Occult Blood NEG (NEG) Urine Nitrite NEG (NEG) Urine Bilirubin NEG (NEG) Urine Urobilinogen LESS THAN 2.0 MG/DL (LESS Urine Leukocyte Esterase NEG (NEG) Urine RBC 5 /hpf (0-3) Urine WBC LESS THAN 1 /hpf (0-5) Urine Bacteria RARE /hpf (NONE) Microscopic Urinalysis Comment CULT NOT INDICATED Lactic Acid Level 1.2 mmol/L (0.4-2.0) Prothrombin Time 11.6 SEC (9.8-11.6) Prothromb Time International Ratio 1.0 RATIO Ammonia 41 MCMOL/L (11-32) Test 01/24/17 08:05 White Blood Count 6.4 TH/MM3 (4.0-11.0) Red Blood Count 3.93 MIL/MM3 (4.50-5.90) Hemoglobin 12.1 GM/DL (13.0-17.0) Hematocrit 35.5 % (39.0-51.0) Mean Corpuscular Volume 90.5 FL (80.0-100.0) Mean Corpuscular Hemoglobin 30.9 PG (27.0-34.0) Mean Corpuscular Hemoglobin Concent 34.2 % (32.0-36.0) Red Cell Distribution Width 15.0 % (11.6-17.2) Platelet Count 172 TH/MM3 (150-450) Mean Platelet Volume 7.4 FL (7.0-11.0) Neutrophils (%) (Auto) 71.9 % (16.0-70.0) Lymphocytes (%) (Auto) 14.2 % (9.0-44.0) Monocytes (%) (Auto) 11.1 % (0.0-8.0) Eosinophils (%) (Auto) 2.5 % (0.0-4.0) Basophils (%) (Auto) 0.3 % (0.0-2.0) Neutrophils # (Auto) 4.6 TH/MM3 (1.8-7.7) Lymphocytes # (Auto) 0.9 TH/MM3 (1.0-4.8) Monocytes # (Auto) 0.7 TH/MM3 (0-0.9) Eosinophils # (Auto) 0.2 TH/MM3 (0-0.4) Basophils # (Auto) 0.0 TH/MM3 (0-0.2) CBC Comment DIFF FINAL Differential Comment Blood Urea Nitrogen 42 MG/DL (7-18) Creatinine 1.08 MG/DL (0.60-1.30) Random Glucose 100 MG/DL (74-106) Total Protein 6.1 GM/DL (6.4-8.2) Albumin 2.7 GM/DL (3.4-5.0) Calcium Level 8.2 MG/DL (8.5-10.1) Phosphorus Level 3.0 MG/DL (2.5-4.9) Magnesium Level 2.0 MG/DL (1.5-2.5) Alkaline Phosphatase 88 U/L (45-117) Aspartate Amino Transf (AST/SGOT) 43 U/L (15-37) Alanine Aminotransferase (ALT/SGPT) 55 U/L (12-78) Total Bilirubin 0.9 MG/DL (0.2-1.0) Sodium Level 144 MEQ/L (136-145) Potassium Level 4.1 MEQ/L (3.5-5.1) Chloride Level 112 MEQ/L (98-107) Carbon Dioxide Level 25.4 MEQ/L (21.0-32.0) Anion Gap 7 MEQ/L (5-15) Estimat Glomerular Filtration Rate 65 ML/MIN (>89) Free Thyroxine 1.27 NG/DL (0.76-1.46) . Result Diagram: 01/24/1780401/24/1705 Microbiology Microbiology Date/Time Source Procedure Growth Status 01/23/17 11:15 Blood Peripheral Aerobic Blood Culture - Preliminary NO GROWTH IN 1 DAY Resulted 01/23/17 11:15 Blood Peripheral Anaerobic Blood Culture - Preliminary NO GROWTH IN 1 DAY Resulted 01/23/17 11:10 Blood Peripheral Aerobic Blood Culture - Preliminary NO GROWTH IN 1 DAY Resulted 01/23/17 11:10 Blood Peripheral Anaerobic Blood Culture - Preliminary NO GROWTH IN 1 DAY Resulted Imaging Last Impressions Chest X-Ray 01/23/17 1029 Signed Impressions: Service Date/Time: Monday, January 23, 2017 10:47 - CONCLUSION: Previous bypass, compensated cardiomegaly. Mal Michael MD FACR Head CT 01/23/17 0000 Signed Impressions: Service Date/Time: Saturday, January 23, 2017 16:58 - CONCLUSION: 1. 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 No acute intracranial abnormality. Stable compared to previous dated 01/17/17. Daren Michael MD . Assessment and Plan Disease Oriented Problem List: (1) Generalized weakness (2) Decubitus ulcers (3) Coronary artery disease (4) Hypertension (5) Renal insufficiency Symptom Scale: (1) Weakness (2) Confusion (3) Pain, generalized Pertinent Non-Medical Issues Psychosocial:He was born in [place] and moved to [place] 25 years ago. He was briefly in the service according to his , but she could not verify which branch. They have 1 daughter who lives in [place]. He lives with his . They have been over 60 years. . Spiritual: Spirituality is not an important factor to him. . Legal: The patient is currently confused and unable to make his own decisions. Per [place] statute his , Patsy Alexander, would be the healthcare proxy. I have discussed this with her and she is willing to be the decision-maker. . Ethical issues impacting care: None noted. . Important Contacts : Patsy Alexander . Prognosis His prognosis is poor. This is his second ED admission in a week. At this time tests are inconclusive. He has had no long-term hospitalizations but has developed a stage II decubitus ulcer on his sacrum, likely due to progressive sedentary behavior. His appetite has recently begun to decline and he is developing intermittent confusion, consistent with failure to thrive. He has have expressed concern lately that he may be developing dementia. He is at elevated risk for recurrent complications and hospitalizations. Code Status: Full Code Plan PLAN: Legal decision maker: The patient is less confused but still lacks insight to be able to make his own decisions independently. He is progressing toward possibly shared decision making. Per [place] statutes, his Patsy, would be the proxy decision maker. She is willing to serve in that role per my discussion with her. Goals: Aggressive at this time, however as the patient's mentation clears he appears to favor more comfort oriented goals. As he lacks insight into his condition, he is unable to make that decision at this time and his 's decision is aggressive care for now. CODE STATUS: Full code. SYMPTOMS: * Weakness: Patient is currently participating in physical therapy. The cause of his weakness at this time is undetermined. Ammonia lab shows mild elevation at 41. He is receiving lactulose for this. His hydration status is improving. He will require rehabilitation per PT jake. is requesting a facility close to her home near [facility]. * Pain: He is at risk for increased pain due to his sacral decubitus. Per his he has chronic discomfort in his legs and knees. He was recently hospitalized for what his describes as severe chest pain. Cardiac workup at that admission was negative. No pulmonary embolus was seen. Slightly elevated troponin level of 0.06 is seen on repeat labs, however he is not complaining of any chest pain at this time. The slight elevation could also be due to his recent dehydration and renal insufficiency. Percocet and morphine are available as needed. He received one 5/325 mg Percocet this morning and currently has no pain. * Confusion: initially said that this was new over the last few weeks, however today did note that it has been going on longer. His ammonia was mildly elevated and that is being treated. His confusion is improving, either from decreased ammonia level or from rehydration is unclear. He may benefit from a neurological evaluation to evaluate for possible dementia if confusion continues. Palliative care will continue to follow the patient during hospital course as condition evolves, to assist patient/decision-maker with understanding of their medical conditions, weighing benefits/burdens of treatment options, for clarification of goals of treatment. Additionally will assist with any symptoms of palliative concern. . Attestation To help prompt me to consider important information that might be impacting today's encounter and assessment, information from prior notes written by myself or my colleagues may have been "brought forward" into today's note. My signature on this note, however, is an attestation that I personally performed the exam, history, and/or decision-making noted today, and, unless otherwise indicated, the interactions with patient, family, and staff as well as the review of records all occurred today. I also attest that the listed assessment and stated plan reflect my best clinical judgment today based on the combination of historical information, prior notes, and today's exam/ interactions. When time spent is documented, it refers only to time spent today by the signer, or if indicated, combined time spent today by collaborating physician/nurse practitioner. . Sirena Acevedo Jan 24, 2017 15:06
--- NOTE | 2017-01-24 15:08 | PD.CONS ---
HPI History of Present Illness This is a 86 year old male admitted to the hospital on 01/23/17 with generalized weakness and altered mental status. Patient is a poor historian but is now responding to some verbal stimuli. Patient according to the record was initially complaining of abdominal pain, but has had a large bowel movement this afternoon which consisted of formed stool followed with loose stool. Patient states his abdomen is now feeling better. Patient denies any nausea or vomiting but then became agitated and not answer any further questions. Gastroenterology consult for elevated LFTs and possible hepatic encephalopathy. On admission patient's AST level was 82, labs now show 43. Initial elevated bilirubin level at 1.1 is now normalized within 24 hours at 0.9. Patient's abdomen is mildly obese, no facial grimace to tactile palpation. According to the record, patient was hospitalized December 2015 with abdominal pain, x-rays and CT showed diverticulosis without diverticulitis. (Carol Ann Hickey) PFSH Past Medical History Per patient's record information shows Osteoarthritis History of colon cancer Hyperlipidemia Coronary artery disease history of aortic valve surgery and bypass surgery Hypertension BPH Old records show diverticulosis . 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 (Carol Ann Hickey) Coded Allergies: No Known Allergies (Verified , 01/20/13) Medications Administered Medications Medications (Trade) Dose Ordered Sig/Rios Route PRN Reason Start Time Stop Time Status Last Admin Dose Admin Sodium Chloride 1,000 ml @ 100 mls/hr Q10H IV 01/23/17 13:00 01/24/17 07:45 Sodium Chloride (NS Flush) 2 ml BID IV FLUSH 01/23/17 21:00 01/24/17 10:07 Enoxaparin Sodium (Lovenox Inj) 30 mg Q24H SQ 01/23/17 15:00 01/23/17 16:04 Oxycodone/ Acetaminophen (Percocet 5-325 Mg) 1 tab Q6H PRN PO PAIN SCALE 3 TO 5 01/23/17 13:15 01/24/17 14:12 Senna/Docusate Sodium (Ewa-Colace) 1 tab BID PO 01/23/17 21:00 01/24/17 10:07 Amlodipine Besylate (Norvasc) 5 mg DAILY PO 01/24/17 09:00 01/24/17 10:07 Aspirin (Aspirin Chew) 81 mg DAILY CHEW 01/24/17 09:00 01/24/17 10:06 Metoprolol Succinate (Toprol Xl) 50 mg BID PO 01/23/17 21:00 01/24/17 10:07 Prasugrel (Effient) 10 mg DAILY PO 01/24/17 09:00 01/24/17 10:07 Terazosin HCl (Hytrin) 5 mg HS PO 01/23/17 21:00 01/23/17 22:42 Budesonide/ Formoterol Fumarate (Symbicort 160-4.5 Mcg Inh) 2 puff BID INH 01/23/17 21:00 01/24/17 10:08 Atorvastatin Calcium (Lipitor) 20 mg HS PO 01/23/17 21:00 01/23/17 22:42 Famotidine (Pepcid Inj) 10 mg Q12HR IV PUSH 01/23/17 15:00 01/24/17 10:07 Lactulose (Lactulose Liq) 30 ml BID PO 01/24/17 11:45 01/24/17 12:14 Family History Father at age 82 of natural causes, mother at age 79 of natural causes. . Social History No tobacco alcohol or illicits currently (Carol Ann Hickey) Review of Systems Gastrointestinal: COMPLAINS OF: Abdominal pain, Constipation Psychiatric: COMPLAINS OF: Mood changes, Agitation (Carol Ann Hickey) GI Exam Vitals I&O Vital Signs Date Time Temp Pulse Resp B/P (MAP) Pulse Ox O2 Delivery O2 Flow Rate FiO2 01/24/17 13:55 73 01/24/17 12:00 97.9 81 20 112/62 (79) 96 01/24/17 08:00 98.3 65 18 114/58 (76) 97 01/24/17 07:35 86 01/24/17 04:00 98.2 97 20 128/65 (86) 98 01/24/17 00:00 97.3 96 18 155/58 (90) 96 01/23/17 23:30 98 01/23/17 20:00 98.5 113 18 150/69 (96) 98 I/O 01/23/17 01/23/17 01/23/17 01/24/1730/17 11/30/17 07:00 15:00 23:00 07:00 15:00 23:00 Intake Total 1000 ml Balance 1000 ml Intake IV Total 1000 ml # Voids 4 Imaging Last Impressions Chest X-Ray 01/23/17 1029 Signed Impressions: Service Date/Time: Monday, January 23, 2017 10:47 - CONCLUSION: Previous bypass, compensated cardiomegaly. Mal Michael MD FACR Head CT 01/23/17 0000 Signed Impressions: Service Date/Time: Monday, January 23, 2017 16:58 - CONCLUSION: 1. 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 No acute intracranial abnormality. Stable compared to previous dated 01/17/17. Daren Michael MD Laboratory Test 01/23/17 18:06 01/24/17 08:05 Prothrombin Time 11.6 SEC Prothromb Time International Ratio 1.0 RATIO Ammonia 41 MCMOL/L Total Creatine Kinase 287 U/L Troponin I 0.06 NG/ML White Blood Count 6.4 TH/MM3 Red Blood Count 3.93 MIL/MM3 Hemoglobin 12.1 GM/DL Hematocrit 35.5 % Mean Corpuscular Volume 90.5 FL Mean Corpuscular Hemoglobin 30.9 PG Mean Corpuscular Hemoglobin Concent 34.2 % Red Cell Distribution Width 15.0 % Platelet Count 172 TH/MM3 Mean Platelet Volume 7.4 FL Neutrophils (%) (Auto) 71.9 % Lymphocytes (%) (Auto) 14.2 % Monocytes (%) (Auto) 11.1 % Eosinophils (%) (Auto) 2.5 % Basophils (%) (Auto) 0.3 % Neutrophils # (Auto) 4.6 TH/MM3 Lymphocytes # (Auto) 0.9 TH/MM3 Monocytes # (Auto) 0.7 TH/MM3 Eosinophils # (Auto) 0.2 TH/MM3 Basophils # (Auto) 0.0 TH/MM3 CBC Comment DIFF FINAL Differential Comment Blood Urea Nitrogen 42 MG/DL Creatinine 1.08 MG/DL Random Glucose 100 MG/DL Total Protein 6.1 GM/DL Albumin 2.7 GM/DL Calcium Level 8.2 MG/DL Phosphorus Level 3.0 MG/DL Magnesium Level 2.0 MG/DL Alkaline Phosphatase 88 U/L Aspartate Amino Transf (AST/SGOT) 43 U/L Alanine Aminotransferase (ALT/SGPT) 55 U/L Total Bilirubin 0.9 MG/DL Sodium Level 144 MEQ/L Potassium Level 4.1 MEQ/L Chloride Level 112 MEQ/L Carbon Dioxide Level 25.4 MEQ/L Anion Gap 7 MEQ/L Estimat Glomerular Filtration Rate 65 ML/MIN Free Thyroxine 1.27 NG/DL Date/Time Source Procedure Growth Status 01/23/17 11:15 Blood Peripheral Aerobic Blood Culture - Preliminary NO GROWTH IN 1 DAY Resulted 01/23/17 11:15 Blood Peripheral Anaerobic Blood Culture - Preliminary NO GROWTH IN 1 DAY Resulted Physical Examination HEENT: [place]; normocephalic; atraumatic; no jaundice. NECK: Neck is supple, no JVD, no lymphadenopathy. CHEST: Chest no audible rhonchi or wheezing, some distant breath sounds bilateral bases CARDIAC: Regular rate and rhythm, heart sounds distant ABDOMEN: Soft, taut, obese, nontender; no hepatosplenomegaly; bowel sounds are present in all four quadrants. Possible soft hernia right of umbilicus. EXTREMITIES: Mild LE edema. SKIN: Turgor rubs; no rash; no jaundice. RURAL CARRIER: Agitates easy, answered no to one or 2 simple questions, then begin cursing. Speech was clear (Carol Ann Hickey) Assessment and Plan Plan Elevated LFTs, possible mild hepatic encephalopathy. Patient came to the hospital with altered mental status, initial AST elevated at 82, now 43 24 hours later. Initial bilirubin 1.1, now shows normal at 0.924 hours later. Patient does have compensated cardiomegaly per x-ray, no known fatty liver disease, positive for obesity, no new medications since admission to my knowledge the patient is on Lipitor. Hemoglobin stable at 12.1 Constipation; no bowel movement since admission which has only been 24 hours, the patient has had large formed brown stool followed with loose stool today on 01/24. Patient was initially complaining of some abdominal pain, but now states his abdomen feels better. No obvious abdominal discomfort to tactile stimulation and no facial grimace. Altered mental status, more obtunded and unable to answer questions on admission according to record, patient now responds to some verbal stimuli and tactile stimuli. Patient does have sacral decubiti which extends up under scrotal area, painful to touch and to clean according to staff. Patient is requiring total assistance, but some of this may be is norm. History of Diverticulosis, previous CT and abdominal x-rays show no signs of diverticulitis. Abd. pain improved after large BM. Will focus on Liver Ultrasound to R/O Hepatic encephalopathy. Chest x-ray shows compensated cardiomegaly CT of the head shows shows microvascular changes as well as cortical atrophy. Plan Continue diet of 1800-calorie ADA, heart healthy. Monitor for any dysphagia document percentage of food consumed LACHELLE Hepatitis Profile Continue medical management with bowel regimen Ewa-Colace Pepcid IV Milk of magnesia, Senokot, Dulcolax, lactulose as needed for bowel regimen ASA Check LFTs and bilirubin in a.m. Hold Lipitor for now Pain management per attending Further plan of care and workup dependent on findings during this admission Patient evaluated and seen per Dr. Bower and myself, this note is done on her behalf (Carol Ann Hickey) Physician Comments seen, examined agree with above eating dinner now.No nausea, vomiting, abdominal pain us not done due to agitation-we will try in am again mild elevation of ammonia, doubt the cause of his confusion (Uma Bower MD) Carol Ann Hickey Jan 24, 2017 15:08 Uma Bower MD Jan 24, 2017 18:12
[2017-01-24] MEDS: ENOXAPARIN SODIUM 30 MG/0.3 ML SYRINGE SQ SCH (16:07)
[2017-01-24 18:16] LABS: HEMOGLOBIN A1a 1.4 %; HEMOGLOBIN A1b 1.8 %; HEMOGLOBIN Ao 83.7 %; HEMOGLOBIN LA1C 2.3 %; HEMOGLOBIN P3 5.7 %
[2017-01-24] MEDS: TERAZOSIN HCL 5 MG CAP PO SCH (21:40)
[2017-01-25] VITALS (11 sets, daily range): BP systolic 106–125; BP diastolic 55–60; PULSE 72–93; RESP 17–20; TEMP 97–99.1; O2SAT 94–100
[2017-01-25] MEDS: SODIUM CHLOR 0.9% 1000 ML INJ 1,000 ML IV SCH (05:00)
[2017-01-25 07:32] LABS: HEMATOCRIT 37.3 % (39.0-51.0); MEAN CELL VOLUME 90.3 FL (80.0-100.0); MEAN CORPUSCULAR HEMOGLOBIN 30.5 PG (27.0-34.0); MEAN CORPUSCULAR HGB CONC 33.8 % (32.0-36.0); PLATELET COUNT 157 TH/MM3 (150-450); RED BLOOD COUNT 4.13 MIL/MM3 (4.50-5.90); RED CELL DISTRIBUTION WIDTH 14.9 % (11.6-17.2); REVIEW FLAG FINAL; WHITE BLOOD COUNT 9.9 TH/MM3 (4.0-11.0)
[2017-01-25 07:41] LABS: BICARBONATE 20.8 MEQ/L (21.0-32.0); POTASSIUM 4.2 MEQ/L (3.5-5.1)
[2017-01-25 07:43] LABS: INDIRECT BILIRUBIN 0.4 MG/DL (0.0-0.8); TOTAL BILIRUBIN ADULT 0.9 MG/DL (0.2-1.0)
[2017-01-25] MEDS: amLODIPine BESYLATE 5 MG TAB PO SCH (09:00)
[2017-01-25] MEDS: DOCUSATE SODIUM 50 MG/SENNA 8.6 MG TAB PO SCH (09:00)
[2017-01-25] MEDS: METOPROLOL SUCCINATE 50 MG EXTENDED RELEASE TAB PO SCH ×2 (09:29→21:23)
[2017-01-25] MEDS: FAMOTIDINE 20 MG/2 ML VIAL IV PUSH SCH ×2 (09:30→21:23)
[2017-01-25] MEDS: LACTULOSE SYRUP 20 GM/30 ML CUP PO SCH ×2 (09:30→21:23)
[2017-01-25] MEDS: SODIUM CHLORIDE 0.9% FLUSH 10 ML FLUSH IV FLUSH SCH ×2 (09:31→21:23)
[2017-01-25] MEDS: BUDESONIDE-FORMOTEROL 160/4.5 MCG INHALER INH SCH ×2 (09:31→21:00)
--- NOTE | 2017-01-25 11:29 | HHI.DS ---
Discharge Summary Admission Date Jan 23, 2017 at 13:11 Discharge Date: Jan 25, 2017 Admitting Diagnosis severe dehydration, weakness, lethargic, sacral/buttock decubitus (1) Generalized weakness ICD Code: R53.1 - Weakness (2) Decubitus ulcers ICD Code: L89.90 - Pressure ulcer of unspecified site, unspecified stage (3) Renal insufficiency ICD Code: N28.9 - Disorder of kidney and ureter, unspecified (4) Coronary artery disease ICD Code: I25.10 - Atherosclerotic heart disease of [place] coronary artery without angina pectoris (5) Hyperlipidemia ICD Code: E78.5 - Hyperlipidemia, unspecified (6) Hypertension ICD Code: I10 - Essential (primary) hypertension Procedures None Brief History - From Admission History of present illness from the admitting physician Patient is a 86-year-old male with chief complaint of weakness. Patient is not able to give much information very somnolent does respond to sternal rub denies any current chest pain shortness of breath or nausea or vomiting or diarrhea Cannot tell me who his primary care physician is CBC/BMP: 01/25/17 0706 01/25/17 0706 Significant Findings Laboratory Tests Test 01/23/17 10:30 01/23/17 10:45 01/23/17 11:13 01/23/17 18:06 Red Blood Count 3.98 MIL/MM3 (4.50-5.90) Hemoglobin 12.1 GM/DL (13.0-17.0) Hematocrit 36.1 % (39.0-51.0) Neutrophils (%) (Auto) 72.0 % (16.0-70.0) Monocytes (%) (Auto) 11.4 % (0.0-8.0) Blood Urea Nitrogen 65 MG/DL (7-18) Creatinine 1.38 MG/DL (0.60-1.30) Random Glucose 112 MG/DL (74-106) Albumin 3.1 GM/DL (3.4-5.0) Calcium Level 8.4 MG/DL (8.5-10.1) Aspartate Amino Transf (AST/SGOT) 82 U/L (15-37) Total Bilirubin 1.1 MG/DL (0.2-1.0) Chloride Level 110 MEQ/L (98-107) Estimat Glomerular Filtration Rate 49 ML/MIN (>89) Total Creatine Kinase 352 U/L (39-308) Creatine Kinase MB 5.8 NG/ML (0.5-3.6) Urine RBC 5 /hpf (0-3) Urine Bacteria RARE /hpf (NONE) Ammonia 41 MCMOL/L (11-32) Troponin I 0.06 NG/ML (0.02-0.05) Test 01/24/17 08:05 01/24/17 17:25 01/25/17 07:06 Red Blood Count 3.93 MIL/MM3 (4.50-5.90) 4.13 MIL/MM3 (4.50-5.90) Hemoglobin 12.1 GM/DL (13.0-17.0) 12.6 GM/DL (13.0-17.0) Hematocrit 35.5 % (39.0-51.0) 37.3 % (39.0-51.0) Neutrophils (%) (Auto) 71.9 % (16.0-70.0) Monocytes (%) (Auto) 11.1 % (0.0-8.0) Lymphocytes # (Auto) 0.9 TH/MM3 (1.0-4.8) Blood Urea Nitrogen 42 MG/DL (7-18) 42 MG/DL (7-18) Total Protein 6.1 GM/DL (6.4-8.2) 5.8 GM/DL (6.4-8.2) Albumin 2.7 GM/DL (3.4-5.0) 2.5 GM/DL (3.4-5.0) Calcium Level 8.2 MG/DL (8.5-10.1) 7.6 MG/DL (8.5-10.1) Aspartate Amino Transf (AST/SGOT) 43 U/L (15-37) Chloride Level 112 MEQ/L (98-107) 116 MEQ/L (98-107) Estimat Glomerular Filtration Rate 65 ML/MIN (>89) 43 ML/MIN (>89) Creatinine 1.52 MG/DL (0.60-1.30) Random Glucose 126 MG/DL (74-106) Direct Bilirubin 0.5 MG/DL (0.0-0.2) Sodium Level 146 MEQ/L (136-145) Carbon Dioxide Level 20.8 MEQ/L (21.0-32.0) Imaging Last Impressions Liver Ultrasound 01/24/17 0000 Signed Impressions: Service Date/Time: December 15:15 - CONCLUSION: Limited exam with inhomogeneous areas in the liver. These can be evaluated with contrast CT of the abdomen when the patient is clinically stable. Mal Michael MD FACR Chest X-Ray 01/23/17 1029 Signed Impressions: Service Date/Time: Monday, January 23, 2017 10:47 - CONCLUSION: Previous bypass, compensated cardiomegaly. Mal Michael MD FACR Head CT 01/23/17 0000 Signed Impressions: Service Date/Time: Monday, January 23, 2017 16:58 - CONCLUSION: 1. 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 No acute intracranial abnormality. Stable compared to previous dated 01/17/17. Daren Michael MD PE at Discharge GENERAL: Patient appeared to be very deconditioned. Confused, lethargic CARDIOVASCULAR: Normal rate and regular rhythm without murmurs, gallops, or rubs. RESPIRATORY: Good respiratory efforts. Breath sounds equal and clear to auscultation bilaterally. GASTROINTESTINAL: Abdomen soft, non-tender, non-distended. Normal active bowel sounds MUSCULOSKELETAL: Extremities without cyanosis, or edema. NEURO: Aware of self only. Confused, lethargic PSYCH: Calm. Pt update on day of discharge Patient is lethargic and confused. He developed rojelio hematuria. Palliative care discussed with his . She elected to transition him to comfort care only. Requested hospice services at home. Hospital Course 86-year-old male brought into the hospital for weakness. Patient arrived encephalopathic. His history most consistent with dementia. The patient's liver enzymes were also elevated. The patient was admitted and workup revealed brain cortical atrophy and microvascular changes but no acute abnormalities. He was given IV fluid, physical therapy. The patient was evaluated by GI for elevated liver enzymes. His ammonia level was slightly elevated but it was thought to be not the cause of his encephalopathy. Based on further discussions with the patient's , it appears that he has been declining and probably has worsening to end-stage dementia. He also developed rojelio hematuria. He is basically bedbound with sacral ulcers and has been too weak to move at all. He is at risk for aspiration. His elected to transition him to comfort care only with hospice services at home. The patient was discharged home with hospice. Other conditions treated include: Renal insufficiency/dehydration: Patient was treated with IV fluid. Renal functions did not improve much. BPH continue home medications Hypertension continue on home medications Hyperlipidemia: continue on home medications Stage 2-3 pressure ulcer: Secondary to debility. Wound care and frequent turning. Pt Condition on Discharge: Deteriorating Discharge Disposition: Hospice/ Home Discharge Time: > 30 minutes Discharge Instructions DIET: Follow Instructions for: As Tolerated, No Restrictions Activities you can perform: Regular-No Restrictions Continued Medications: Fluticasone-Salmeterol Inh (Advair Diskus Inh) 500-50 Mcg/Blist Aer 1 PUFF INH BID, #1 INHALER 0 Refills Rinse mouth after use. Metoprolol Succinate ER 24 HR (Metoprolol Succinate ER 24 HR) 50 Mg Tab 50 MG PO BID, #30 TAB 0 Refills Ondansetron Odt (Zofran Odt) 8 Mg Tab 8 MG SL Q12H PRN for NAUSEA OR VOMITING, #12 TAB 0 Refills Terazosin (Terazosin) 5 Mg Cap 5 MG PO HS, #30 CAP 0 Refills Discontinued Medications: Amlodipine (Amlodipine) 5 Mg Tab 5 MG PO DAILY for Blood Pressure Management, #30 TAB 0 Refills Aspirin (Aspirin) 81 Mg Chew 81 MG CHEW DAILY, TAB 0 Refills Prasugrel (Effient) 10 Mg Tab 10 MG PO DAILY for Blood Clot Prevention, #30 TAB 0 Refills Rosuvastatin (Crestor) 10 Mg Tab 10 MG PO HS for Cholesterol Management, #30 TAB 0 Refills Jaclyn Berman MD Jan 25, 2017 11:29
[2017-01-25 11:30] LABS: ANA SCREEN NEG (NEG)
--- NOTE | 2017-01-25 12:06 | HHI.HCPN ---
Reason for visit a. To assist with evaluation and management of symptoms including: Weakness , pain, confusion b. To assist medical decision maker(s) with: better understanding of current medical conditions; weighing benefits/burdens of medical treatment options; making medical treatment decisions. . Subjective/Interval History More confused this morning. Speech is more garbled, he has more difficulty focusing on people in the room. Overnight he developed hematuria. He is audibly wheezing. He is having difficulty complying with simple commands. Interim course: * Laboratory: WBC 9.9, Hgb 12.6, HCT 37.3, PLT 157, sodium 146, potassium 4.2, BUN 42, creatinine 1.52. Ammonia is decreased to 31. Blood cultures are negative 2 days. * Vital signs: BP 123/58, pulse 90, RR 20, temp 98.0, O2 saturation 98% on room air. * Radiology: Liver ultrasound is pending. 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 Recommending calazime skin protectant twice a day and when necessary. * PT: Recommending rehabilitation. Patient unable to maintain posture, requires max assist 2 for sit to stand, incontinent of urine upon standing. It is unlikely at this time that he would be able to comply with a rehabilitation regimen. He remains more confused and is audibly wheezing. It is unlikely that he would be able to participate in a rehabilitation routine. He is having difficulty following simple commands and is more confused , having more difficulty focusing. . Family/friend interactions I discussed the decline in his condition with his , Patsy, who agrees that he should be made a DO NOT RESUSCITATE status and would like hospice consulted for support services. This was communicated to Dr. Berman, hospice admission office and to Karol Carias, hospice admission nurse today. If he remains stable he could be transferred home with hospice services today. . Advance Directives Living Will: Completed, but not made available Health Care Surrogate: Completed, but not made available Durable Power of Urgent Care Physician: Completed, but not made available Advance Directive Specifics Significant change in goals: 01/25-change CODE STATUS to DNR. Consult hospice. Objective Vital Signs Date Time Temp Pulse Resp B/P (MAP) Pulse Ox O2 Delivery O2 Flow Rate FiO2 01/25/17 11:42 98.0 90 20 123/58 (79) 98 01/25/17 10:49 96 01/25/17 08:27 98.7 79 17 106/58 (74) 100 01/25/17 04:00 97.0 86 20 112/55 (74) 94 01/25/17 00:30 91 01/24/17 21:40 150/86 (107) 01/24/17 21:27 96 01/24/17 20:47 81 167/72 (103) 98 01/24/17 19:56 83 129/59 (82) 98 01/24/17 19:30 98.3 52 20 95 01/24/17 16:15 84 01/24/17 16:00 97.8 79 18 158/70 (99) 96 01/24/17 13:55 73 01/24/17 12:00 97.9 81 20 112/62 (79) 96 Intake & Output 01/25/17 01/25/17 07:00 19:00 # Voids 5 Physical Exam CONSTITUTIONAL/GENERAL: This is an adequately nourished patient, in no apparent distress. TUBES/LINES/DRAINS: PIV left hand SKIN: No jaundice, rashes, or lesions. Ecchymoses on upper extremities. No wounds seen anteriorly. Skin temperature appropriate. Not diaphoretic. CARDIOVASCULAR: S1, S2, Regular rhythm, controlled rate without murmurs, gallops , or rubs. No JVD. Peripheral pulses symmetric. RESPIRATORY/CHEST: Audible wheezes with inspiration, generalized rhonchi. GASTROINTESTINAL: Abdomen soft, non-tender, nondistended. No hepato-splenomegaly , or palpable masses. No guarding. Bowel sounds present. GENITOURINARY: Hematuria today. MUSCULOSKELETAL: Extremities without clubbing, cyanosis. 1+ dependent edema. No joint tenderness or effusion noted. No calf tenderness. No mottling or clubbing. NEUROLOGICAL: More confused today, has difficulty focusing on people in the room. He has difficulty following simple commands. PSYCHIATRIC: Confused. . Diagnostic Tests Laboratory Laboratory Tests Test 01/23/17 10:30 01/23/17 10:45 01/23/17 11:13 01/23/17 18:06 White Blood Count 7.5 TH/MM3 (4.0-11.0) Red Blood Count 3.98 MIL/MM3 (4.50-5.90) Hemoglobin 12.1 GM/DL (13.0-17.0) Hematocrit 36.1 % (39.0-51.0) Mean Corpuscular Volume 90.6 FL (80.0-100.0) Mean Corpuscular Hemoglobin 30.4 PG (27.0-34.0) Mean Corpuscular Hemoglobin Concent 33.5 % (32.0-36.0) Red Cell Distribution Width 15.2 % (11.6-17.2) Platelet Count 180 TH/MM3 (150-450) Mean Platelet Volume 7.9 FL (7.0-11.0) Neutrophils (%) (Auto) 72.0 % (16.0-70.0) Lymphocytes (%) (Auto) 14.8 % (9.0-44.0) Monocytes (%) (Auto) 11.4 % (0.0-8.0) Eosinophils (%) (Auto) 1.4 % (0.0-4.0) Basophils (%) (Auto) 0.4 % (0.0-2.0) Neutrophils # (Auto) 5.4 TH/MM3 (1.8-7.7) Lymphocytes # (Auto) 1.1 TH/MM3 (1.0-4.8) Monocytes # (Auto) 0.9 TH/MM3 (0-0.9) Eosinophils # (Auto) 0.1 TH/MM3 (0-0.4) Basophils # (Auto) 0.0 TH/MM3 (0-0.2) CBC Comment DIFF FINAL Differential Comment Blood Urea Nitrogen 65 MG/DL (7-18) Creatinine 1.38 MG/DL (0.60-1.30) Random Glucose 112 MG/DL (74-106) Total Protein 7.0 GM/DL (6.4-8.2) Albumin 3.1 GM/DL (3.4-5.0) Calcium Level 8.4 MG/DL (8.5-10.1) Alkaline Phosphatase 102 U/L (45-117) Aspartate Amino Transf (AST/SGOT) 82 U/L (15-37) Alanine Aminotransferase (ALT/SGPT) 77 U/L (12-78) Total Bilirubin 1.1 MG/DL (0.2-1.0) Sodium Level 140 MEQ/L (136-145) Potassium Level 4.1 MEQ/L (3.5-5.1) Chloride Level 110 MEQ/L (98-107) Carbon Dioxide Level 21.5 MEQ/L (21.0-32.0) Anion Gap 9 MEQ/L (5-15) Estimat Glomerular Filtration Rate 49 ML/MIN (>89) Total Creatine Kinase 352 U/L (39-308) 287 U/L (39-308) Creatine Kinase MB 5.8 NG/ML (0.5-3.6) Creatine Kinase MB % 1.6 % (0.0-4.0) Troponin I 0.02 NG/ML (0.02-0.05) 0.06 NG/ML (0.02-0.05) Thyroid Stimulating Hormone 3rd Gen 0.690 uIU/ML (0.358-3.740) Urine Color YELLOW (YELLW/STRAW) Urine Turbidity CLEAR (CLEAR) Urine pH 5.0 (5.0-8.5) Urine Specific [place] 1.022 (1.002-1.035) Urine Protein TRACE mg/dL (NEG-TRACE) Urine Glucose (UA) NEG mg/dL (NEG) Urine Ketones NEG mg/dL (NEG) Urine Occult Blood NEG (NEG) Urine Nitrite NEG (NEG) Urine Bilirubin NEG (NEG) Urine Urobilinogen LESS THAN 2.0 MG/DL (LESS Urine Leukocyte Esterase NEG (NEG) Urine RBC 5 /hpf (0-3) Urine WBC LESS THAN 1 /hpf (0-5) Urine Bacteria RARE /hpf (NONE) Microscopic Urinalysis Comment CULT NOT INDICATED Lactic Acid Level 1.2 mmol/L (0.4-2.0) Prothrombin Time 11.6 SEC (9.8-11.6) Prothromb Time International Ratio 1.0 RATIO Ammonia 41 MCMOL/L (11-32) Test 01/24/17 08:05 01/24/17 17:25 01/25/17 07:06 White Blood Count 6.4 TH/MM3 (4.0-11.0) 9.9 TH/MM3 (4.0-11.0) Red Blood Count 3.93 MIL/MM3 (4.50-5.90) 4.13 MIL/MM3 (4.50-5.90) Hemoglobin 12.1 GM/DL (13.0-17.0) 12.6 GM/DL (13.0-17.0) Hematocrit 35.5 % (39.0-51.0) 37.3 % (39.0-51.0) Mean Corpuscular Volume 90.5 FL (80.0-100.0) 90.3 FL (80.0-100.0) Mean Corpuscular Hemoglobin 30.9 PG (27.0-34.0) 30.5 PG (27.0-34.0) Mean Corpuscular Hemoglobin Concent 34.2 % (32.0-36.0) 33.8 % (32.0-36.0) Red Cell Distribution Width 15.0 % (11.6-17.2) 14.9 % (11.6-17.2) Platelet Count 172 TH/MM3 (150-450) 157 TH/MM3 (150-450) Mean Platelet Volume 7.4 FL (7.0-11.0) 7.4 FL (7.0-11.0) Neutrophils (%) (Auto) 71.9 % (16.0-70.0) Lymphocytes (%) (Auto) 14.2 % (9.0-44.0) Monocytes (%) (Auto) 11.1 % (0.0-8.0) Eosinophils (%) (Auto) 2.5 % (0.0-4.0) Basophils (%) (Auto) 0.3 % (0.0-2.0) Neutrophils # (Auto) 4.6 TH/MM3 (1.8-7.7) Lymphocytes # (Auto) 0.9 TH/MM3 (1.0-4.8) Monocytes # (Auto) 0.7 TH/MM3 (0-0.9) Eosinophils # (Auto) 0.2 TH/MM3 (0-0.4) Basophils # (Auto) 0.0 TH/MM3 (0-0.2) CBC Comment DIFF FINAL Differential Comment Blood Urea Nitrogen 42 MG/DL (7-18) 42 MG/DL (7-18) Creatinine 1.08 MG/DL (0.60-1.30) 1.52 MG/DL (0.60-1.30) Random Glucose 100 MG/DL (74-106) 126 MG/DL (74-106) Total Protein 6.1 GM/DL (6.4-8.2) 5.8 GM/DL (6.4-8.2) Albumin 2.7 GM/DL (3.4-5.0) 2.5 GM/DL (3.4-5.0) Calcium Level 8.2 MG/DL (8.5-10.1) 7.6 MG/DL (8.5-10.1) Phosphorus Level 3.0 MG/DL (2.5-4.9) Magnesium Level 2.0 MG/DL (1.5-2.5) Alkaline Phosphatase 88 U/L (45-117) 91 U/L (45-117) Aspartate Amino Transf (AST/SGOT) 43 U/L (15-37) 31 U/L (15-37) Alanine Aminotransferase (ALT/SGPT) 55 U/L (12-78) 46 U/L (12-78) Total Bilirubin 0.9 MG/DL (0.2-1.0) 0.9 MG/DL (0.2-1.0) Sodium Level 144 MEQ/L (136-145) 146 MEQ/L (136-145) Potassium Level 4.1 MEQ/L (3.5-5.1) 4.2 MEQ/L (3.5-5.1) Chloride Level 112 MEQ/L (98-107) 116 MEQ/L (98-107) Carbon Dioxide Level 25.4 MEQ/L (21.0-32.0) 20.8 MEQ/L (21.0-32.0) Anion Gap 7 MEQ/L (5-15) 9 MEQ/L (5-15) Estimat Glomerular Filtration Rate 65 ML/MIN (>89) 43 ML/MIN (>89) Hemoglobin A1c 5.9 % (4.3-6.0) Free Thyroxine 1.27 NG/DL (0.76-1.46) Anti-Nuclear Antibody Screen NEG (NEG) Direct Bilirubin 0.5 MG/DL (0.0-0.2) Indirect Bilirubin 0.4 MG/DL (0.0-0.8) Result Diagram: 01/25/17 0706 01/25/17 0706 Microbiology Microbiology Date/Time Source Procedure Growth Status 01/23/17 11:15 Blood Peripheral Aerobic Blood Culture - Preliminary NO GROWTH IN 2 DAYS Resulted 01/23/17 11:15 Blood Peripheral Anaerobic Blood Culture - Preliminary NO GROWTH IN 2 DAYS Resulted 01/23/17 11:10 Blood Peripheral Aerobic Blood Culture - Preliminary NO GROWTH IN 2 DAYS Resulted 01/23/17 11:10 Blood Peripheral Anaerobic Blood Culture - Preliminary NO GROWTH IN 2 DAYS Resulted Imaging Last Impressions Chest X-Ray 01/23/17 1029 Signed Impressions: Service Date/Time: Monday, January 23, 2017 10:47 - CONCLUSION: Previous bypass, compensated cardiomegaly. aMl Michael MD FACR Head CT 01/23/17 0000 Signed Impressions: Service Date/Time: Monday, January 23, 2017 16:58 - CONCLUSION: 1. 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 No acute intracranial abnormality. Stable compared to previous dated 01/17/17. Daren Michael MD Assessment and Plan Disease Oriented Problem List: (1) Generalized weakness (2) Decubitus ulcers (3) Coronary artery disease (4) Hypertension (5) Renal insufficiency Symptom Scale: (1) Weakness (2) Confusion (3) Pain, generalized Pertinent Non-Medical Issues Psychosocial:He was born in [place] and moved to [place] 25 years ago. He was briefly in the service according to his , but she could not verify which branch. They have 1 daughter who lives in [place]. He lives with his . They have been over 60 years. . Spiritual: Spirituality is not an important factor to him. . Legal: The patient is currently confused and unable to make his own decisions. Per [place] statute his , Patsy Alexander, would be the healthcare proxy. I have discussed this with her and she is willing to be the decision-maker. . Ethical issues impacting care: None noted. . Important Contacts : Patsy Alexander . Prognosis His prognosis is poor. This is his second ED admission in a week. At this time tests are inconclusive. He has had no long-term hospitalizations but has developed a stage II decubitus ulcer on his sacrum, likely due to progressive sedentary behavior. His appetite has recently begun to decline and he is developing intermittent confusion, consistent with failure to thrive. He has have expressed concern lately that he may be developing dementia. He is at elevated risk for recurrent complications and hospitalizations. Code Status: No Code Plan PLAN: Legal decision maker: The patient is less confused but still lacks insight to be able to make his own decisions independently. He is progressing toward possibly shared decision making. Per [place] statutes, his Patsy, would be the proxy decision maker. She is willing to serve in that role per my discussion with her. Goals: Aggressive at this time, however as the patient's mentation clears he appears to favor more comfort oriented goals. As he lacks insight into his condition, he is unable to make that decision at this time and his 's decision is aggressive care for now. CODE STATUS: Full code. SYMPTOMS: * Weakness: Patient is unable to participate in physical therapy today due to increased confusion. As he is unlikely to be able to participate in rehabilitation, his has decided to consult hospice, make him a DNR and keep him at home for as long as possible. * Pain: Denies any pain at this time. Has Percocet available. One dose of 5/ 325 mg taken in the last 24 hours. * Confusion: Increasing today. Declining. Hospice consult today. Palliative care will continue to follow the patient during hospital course as condition evolves, to assist patient/decision-maker with understanding of their medical conditions, weighing benefits/burdens of treatment options, for clarification of goals of treatment. Additionally will assist with any symptoms of palliative concern. . Attestation To help prompt me to consider important information that might be impacting today's encounter and assessment, information from prior notes written by myself or my colleagues may have been "brought forward" into today's note. My signature on this note, however, is an attestation that I personally performed the exam, history, and/or decision-making noted today, and, unless otherwise indicated, the interactions with patient, family, and staff as well as the review of records all occurred today. I also attest that the listed assessment and stated plan reflect my best clinical judgment today based on the combination of historical information, prior notes, and today's exam/ interactions. When time spent is documented, it refers only to time spent today by the signer, or if indicated, combined time spent today by collaborating physician/nurse practitioner. . Sirena Acevedo Jan 25, 2017 12:06
--- NOTE | 2017-01-25 12:25 | RADRPT ---
EXAM DATE/TIME: 01/24/2017 15:15 [facility] COMPARISON: CT ABDOMEN & PELVIS W/O CONTRAST, January 16, 2016, 13:06. INDICATIONS : Elevated labs. Multiple attempts were made to scan t this hospital patient.. We were unsuccessful i n this exam. MEDICAL HISTORY : Hypercholesterolemia. Aortic valve replacement. Hypertension. Congestive heart failure. Coronary heart failure. CABG. Arthritis. SURGICAL HISTORY : Bowel resection. ENCOUNTER: Initial ACUITY: 1 day PAIN SCORE: Nonresponsive. LOCATION: Right upper quadrant MEASUREMENTS: LIVER: 15.1 cm length COMMON DUCT: Non-visualized RIGHT KIDNEY: 10.5 x 4.7 x 5.1 SPLEEN: 9.8 FINDINGS: LIVER: Inhomogeneous areas within the liver.. COMMON DUCT: No intraluminal mass or stone visualized. GALLBLADDER: Limited visualization without stones. PANCREAS: Not visualized RIGHT KIDNEY: No hydronephrosis, stone or mass. SPLEEN: Poorly seen CONCLUSION: Limited exam with inhomogeneous areas in the liver. These can be evaluated with contrast CT of the a bdomen when the patient is clinically stable. Mal Michael MD FACR on January 25, 2017 at 12:21 Board Certified Radiologist. This report was verified electronically.
--- NOTE | 2017-01-25 12:41 | HHI.GIFU ---
Subjective Remarks Resting in bed. No distress. Lethargic, confused. (JulienJenny Soledad EDY) Objective Vitals I&O Vital Signs Date Time Temp Pulse Resp B/P (MAP) Pulse Ox O2 Delivery O2 Flow Rate FiO2 01/25/17 11:42 98.0 90 20 123/58 (79) 98 01/25/17 10:49 96 01/25/17 08:27 98.7 79 17 106/58 (74) 100 01/25/17 04:00 97.0 86 20 112/55 (74) 94 01/25/17 00:30 91 01/24/17 21:40 150/86 (107) 01/24/17 21:27 96 01/24/17 20:47 81 167/72 (103) 98 01/24/17 19:56 83 129/59 (82) 98 01/24/17 19:30 98.3 52 20 95 01/24/17 16:15 84 01/24/17 16:00 97.8 79 18 158/70 (99) 96 01/24/17 13:55 73 I/O 01/24/17 01/24/17 01/24/17 01/25/17 01/25/17 01/25/17 06:59 14:59 22:59 06:59 14:59 22:59 Intake Total 1240 ml 1000 ml Output Total 600 ml 150 ml Balance 640 ml 850 ml Intake Oral 240 ml IV Total 1000 ml 1000 ml Output Urine Total 600 ml 150 ml # Voids 4 2 1 5 # Bowel Movements 1 1 Laboratory Laboratory Tests Test 01/24/17 17:25 01/25/17 07:06 Anti-Nuclear Antibody Screen NEG White Blood Count 9.9 Red Blood Count 4.13 Hemoglobin 12.6 Hematocrit 37.3 Mean Corpuscular Volume 90.3 Mean Corpuscular Hemoglobin 30.5 Mean Corpuscular Hemoglobin Concent 33.8 Red Cell Distribution Width 14.9 Platelet Count 157 Mean Platelet Volume 7.4 Blood Urea Nitrogen 42 Creatinine 1.52 Random Glucose 126 Total Protein 5.8 Albumin 2.5 Calcium Level 7.6 Alkaline Phosphatase 91 Aspartate Amino Transf (AST/SGOT) 31 Alanine Aminotransferase (ALT/SGPT) 46 Total Bilirubin 0.9 Direct Bilirubin 0.5 Sodium Level 146 Potassium Level 4.2 Chloride Level 116 Carbon Dioxide Level 20.8 Anion Gap 9 Estimat Glomerular Filtration Rate 43 Indirect Bilirubin 0.4 Date/Time Source Procedure Growth Status 01/23/17 11:15 Blood Peripheral Aerobic Blood Culture - Preliminary NO GROWTH IN 2 DAYS Resulted 01/23/17 11:15 Blood Peripheral Anaerobic Blood Culture - Preliminary NO GROWTH IN 2 DAYS Resulted Imaging Last Impressions Chest X-Ray 01/23/17 1029 Signed Impressions: Service Date/Time: Monday, January 23, 2017 10:47 - CONCLUSION: Previous bypass, compensated cardiomegaly. Mal Michael MD FACR Head CT 01/23/17 0000 Signed Impressions: Service Date/Time: Saturday, January 23, 2017 16:58 - CONCLUSION: 1. 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 No acute intracranial abnormality. Stable compared to previous dated 01/17/17. Daren Michael MD Physical Exam HEENT: Normocephalic; atraumatic; no jaundice. CHEST: Resp. even. Expiratory wheezing. CARDIAC: RRR ABDOMEN: Soft, nondistended, nontender; no hepatosplenomegaly; bowel sounds are present in all four quadrants. EXTREMITIES: Generalized edema. SKIN: Normal; no rash; no jaundice. 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 Pt with minimal elevation of ammonia at 41. 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 No acute intracranial abnormality. Stable compared to previous dated 01/17/17. UA unremarkable. Doubt his ammonia level is the etiology for his AMS. - Mildly elevated LFTs. Patient does have compensated cardiomegaly per x-ray, no known fatty liver disease, positive for obesity, no new medications since admission to my knowledge the patient is on Lipitor. LFTs had minimal elevation of AST yesterday at 43. His LFT are normal today. Hepatitis profile pending. LACHELLE negative. Liver US (17/03/16)- --> Limited exam with inhomogenuous areas in the liver. These can be evaluated with contrasted CT scan of the abdomen when stable. - Anemia. 12.6/37.3. - SUMEET. Creat 1.52. PLAN: - OWEN - Await hepatitis profile - CT scan abdomen and pelvis with contrast once renal function improves. - Monitor CBC, CMP - Supportive care - Further recommendations to follow based on results of above - Patient evaluated and seen per Dr. Bower and myself, this note is done on her behalf (Jenny Victoria) Jenny Victoria Jan 25, 2017 12:41 Uma Bower MD Jan 25, 2017 20:06
[2017-01-25] MEDS: oxyCODONE/ACETAMINOPHEN 5 MG/325 MG TAB PO PRN (13:19)
--- NOTE | 2017-01-25 16:38 | EKG ---
Date Performed: 01/25/2017 Time Performed: 10:06:57 PTAGE: 86 years EKG: Sinus rhythm WITH FREQUENT VENTRICULAR PREMATURE COMPLEXES INCOMPLETE RIGHT BUNDLE BRANCH BLOCK LEFT ANTERIOR FAS CICULAR BLOCK NONSPECIFIC T-WAVE ABNORMALITY ABNORMAL ECG Compared to PREVIOUS TRACING , the right bundle branch block is not as pronounced as is now incomplet e right bundle branch block. PREVIOUS TRACIN01/23/2017 10.29 DOCTOR: Lizzie Bo Interpretating Date/Time 01/25/2017 16:36:41
[2017-01-25] MEDS: TERAZOSIN HCL 5 MG CAP PO SCH (21:23)
== END 2017-01-25 22:13 | disposition hospice, inpatient (51) | DRG 640 ==
LOC: NEPC 09:51 → NEDA 13:11 → N05A 13:57
PROVIDERS: ADMIT Family Medicine; ATTEND Family Medicine
DX: E86.0 Dehydration (principal); G93.40 Encephalopathy, unspecified; N17.9 Acute kidney failure, unspecified; L89.313 Pressure ulcer of right buttock, stage 3; F03.90 Unspecified dementia, unspecified severity, without behavioral disturbance, psychotic disturbance, mood disturbance, and anxiety; R31.0 Gross hematuria; N28.9 Disorder of kidney and ureter, unspecified; R53.1 Weakness; I25.10 Atherosclerotic heart disease of native coronary artery without angina pectoris; Z95.1 Presence of aortocoronary bypass graft; Z95.2 Presence of prosthetic heart valve; R74.8 Abnormal levels of other serum enzymes; E78.5 Hyperlipidemia, unspecified; Z51.5 Encounter for palliative care; Z74.01 Bed confinement status; D64.9 Anemia, unspecified; N40.0 Benign prostatic hyperplasia without lower urinary tract symptoms; I10 Essential (primary) hypertension; Z85.038 Personal history of other malignant neoplasm of large intestine; M25.561 Pain in right knee; M25.562 Pain in left knee; Z87.891 Personal history of nicotine dependence
CPT/HCPCS: 70450; 71010; 76705; 80048; 80053; 80074; 80076; 81001; 82140; 82550; 82552; 82948; 83036; 83605; 83735; 84100; 84439; 84443; 84484; 85025; 85027; 85610; 86038; 87040; 93005; J1650; J2270; J7030